=== PATIENT | male | born 1945 | race Caucasian/White ===

== ENCOUNTER 2017-06-14 08:17 | Outpatient (RCR) | payer MEDICARE, SELFPAY ==
[2017-06-14 08:52] LABS: International Normalized Ratio 2.8; Prothrombin Time (Protime)PT. 29.4 SECONDS (11.7-14.9)
[2017-06-14 09:11] LABS: AST(SGOT) 30 U/L (15-37); Alanine Aminotransfer ALT/SGPT 27 U/L (16-61); Albumin, Serum 3.8 g/dL (3.2-5.0); Alkaline Phosphatase 85 U/L (45-117); Bilirubin, Direct 0.11 mg/dL (0.00-0.30); Cholesterol 135 mg/dL (200); Globulin 4.2 g/dL (2.2-4.2); High Density Lipoprotein 55 mg/dL; Triglycerides 65 mg/dL; Very Low Density Lipoprotein 13 mg/dL (5-40)
== END 2017-06-14 09:00 | disposition home or self-care (01) ==
LOC: LAB 08:17
PROVIDERS: Family Provider Family Medicine; PCP Family Medicine; Visit Provider Internal Medicine Cardiovascular Disease
DX: E78.5 Hyperlipidemia, unspecified (principal); Z79.899 Other long term (current) drug therapy; I48.1 Persistent atrial fibrillation; Z95.5 Presence of coronary angioplasty implant and graft
CPT/HCPCS: 36415; 80061; 80076; 85610

== ENCOUNTER → 2017-07-07 09:13 | Outpatient (CLI) | payer MEDICARE, SELFPAY ==
[2017-07-07 09:56] LABS: International Normalized Ratio 2.5; Prothrombin Time (Protime)PT. 26.9 SECONDS (11.7-14.9)
[2017-07-07 10:25] LABS: ALB/GLOB Ratio 0.9 RATIO (0.9-2.4); AST(SGOT) 23 U/L (15-37); Alanine Aminotransfer ALT/SGPT 21 U/L (16-61); Albumin, Serum 3.6 g/dL (3.2-5.0); Alkaline Phosphatase 84 U/L (45-117); Anion Gap 7 (5-15); BUN 27 mg/dL (7-18); BUN/Creat Ratio 23.7 RATIO (10-20); Calcium,Total 8.8 mg/dL (8.5-10.1); Chloride 105 mmol/L (98-107); Creatinine, Serum 1.14 mg/dL (0.70-1.30); EST Glomerular Filtration Rate 67 mL/min (>60); Est Glom Filt Rate - Afr Amer 81 mL/min (>60); Globulin 4.1 g/dL (2.2-4.2); Glucose 95 mg/dL (74-106); Potassium 4.1 mmol/L (3.5-5.1); Protein, Total 7.7 g/dL (6.4-8.2); Sodium Level 141 mmol/L (136-145); T4 Free Direct 1.28 ng/dL (0.76-1.46); Thyroid Stim Hormone (TSH) 1.65 uIU/mL (0.358-3.74); Uric Acid 5.1 mg/dL (3.5-7.2)
== END ==
PROVIDERS: Family Provider Family Medicine; PCP Family Medicine; Visit Provider Family Medicine
DX: I48.1 Persistent atrial fibrillation (principal); Z79.899 Other long term (current) drug therapy; Z95.5 Presence of coronary angioplasty implant and graft; E03.9 Hypothyroidism, unspecified; I10 Essential (primary) hypertension; M10.9 Gout, unspecified
CPT/HCPCS: 36415; 80053; 84439; 84443; 84550; 85610

== ENCOUNTER 2018-05-16 10:12 | Outpatient (RCR) | payer MEDICARE, SELFPAY ==
[2018-05-16 09:10] VITALS: BMI 27.3
[2018-05-16 11:28] LABS: AST(SGOT) 29 U/L (15-37); Alanine Aminotransfer ALT/SGPT 27 U/L (16-61); Alkaline Phosphatase 96 U/L (45-117); Bilirubin, Direct 0.17 mg/dL (0.00-0.30); Cholesterol 141 mg/dL (200); Globulin 4.5 g/dL (2.2-4.2); High Density Lipoprotein 60 mg/dL; Protein, Total 8.5 g/dL (6.4-8.2); Prothrombin Time (Protime)PT. 31.1 SECONDS (11.7-14.9); Triglycerides 79 mg/dL; Very Low Density Lipoprotein 16 mg/dL (5-40)
== END 2018-05-25 15:01 | disposition home or self-care (01) ==
LOC: LAB 10:12
PROVIDERS: Family Provider Family Medicine; PCP Family Medicine; Referring Provider Physician Assistant Medical; Visit Provider Physician Assistant Medical
DX: I25.10 Atherosclerotic heart disease of native coronary artery without angina pectoris (principal); E78.5 Hyperlipidemia, unspecified; I10 Essential (primary) hypertension; I48.1 Persistent atrial fibrillation; Z95.0 Presence of cardiac pacemaker; Z79.01 Long term (current) use of anticoagulants
CPT/HCPCS: 36415; 80061; 80076; 85610

== ENCOUNTER → 2018-06-05 06:49 | Outpatient (CLI) | payer MEDICARE, SELFPAY ==
[2018-05-16 09:10] VITALS: BMI 27.3
--- NOTE | 2018-06-05 19:26 | STRESSREP ---
Stress Test Report Pharmacologic myocardial perfusion stress test. 72-year-old male with a history of chest pain. Medications: Clopidogrel losartan, metoprolol, simvastatin, Coumadin. Stress protocol: Resting EKG demonstrates atrial flutter with a rate of 60 bpm left bundle branch block is noted. 0.4 mg of regadenoson was infused per usual protocol followed by rapid intravenous saline flush injection continuous EKG monitoring was performed. Patient maintained atrial flutter throughout the recording. There were occasional pacing spikes noted. The maximum heart rate was 66 bpm which was 44% of maximum predicted heart rate the maximum workload was 1 metabolic equivalent. The resting blood pressure was 140/82 with a final blood pressure 150/74. No clinical angina was noted. Myocardial perfusion protocol. 12.0 mCi of technetium 99m sestamibi was injected at rest. 0.4 mg of regadenoson was infused per usual protocol. The peak infusion 33.5 mCi of technetium 99m sestamibi was injected stress images were obtained stress and rest images were reconstructed and compared in the short axis vertical and horizontal long axis. Gated images were also obtained to Perfusion SPECT analysis: Review of the stress images demonstrate normal perfusion noted in all areas of the myocardium. There are no areas of reduction of perfusion noted to suggest previous infarct or ischemia there is some GI attenuation artifact noted. A previous inferior wall infarction however not be completely excluded. There is mild apical thinning also present. Gated SPECT analysis: The gated ejection fraction is noted to be 29% with segmental wall motion abnormalities present. Conclusion: Myocardial perfusion stress test with no evidence of ischemia present. Cardiomyopathy present.
== END ==
PROVIDERS: Family Provider Family Medicine; PCP Family Medicine; Referring Provider Physician Assistant Medical; Visit Provider Physician Assistant Medical
DX: I25.10 Atherosclerotic heart disease of native coronary artery without angina pectoris (principal); E78.5 Hyperlipidemia, unspecified; I10 Essential (primary) hypertension; I48.1 Persistent atrial fibrillation; Z95.0 Presence of cardiac pacemaker
CPT/HCPCS: 78452; 93017; A9500; A4216; J2785

== ENCOUNTER 2018-08-02 08:09 | Outpatient (RCR) | payer MEDICARE, SELFPAY ==
[2018-08-02 09:44] LABS: AST(SGOT) 24 U/L (15-37); Alanine Aminotransfer ALT/SGPT 26 U/L (16-61); Alkaline Phosphatase 86 U/L (45-117); Bilirubin, Direct 0.13 mg/dL (0.00-0.30); Cholesterol 144 mg/dL (200); Globulin 4.4 g/dL (2.2-4.2); High Density Lipoprotein 47 mg/dL; Protein, Total 8.4 g/dL (6.4-8.2); Triglycerides 107 mg/dL; Very Low Density Lipoprotein 21 mg/dL (5-40)
[2018-08-02 09:57] LABS: Anion Gap 6 (5-15); BUN 33 mg/dL (7-18); BUN/Creat Ratio 26.2 RATIO (10-20); Calcium,Total 9.3 mg/dL (8.5-10.1); Chloride 105 mmol/L (98-107); Creatinine, Serum 1.26 mg/dL (0.70-1.30); EST Glomerular Filtration Rate 60 mL/min (>60); Est Glom Filt Rate - Afr Amer 72 mL/min (>60); Glucose 95 mg/dL (74-106); Potassium 4.2 mmol/L (3.5-5.1); Sodium Level 141 mmol/L (136-145); Thyroid Stim Hormone (TSH) 1.26 uIU/mL (0.358-3.74); Uric Acid 3.9 mg/dL (3.5-7.2)
== END 2018-08-02 09:09 | disposition home or self-care (01) ==
LOC: LAB 08:09
PROVIDERS: Internal Medicine Cardiovascular Disease; Family Provider Family Medicine; PCP Family Medicine; Referring Provider Physician Assistant Medical; Visit Provider Physician Assistant Medical
DX: I25.10 Atherosclerotic heart disease of native coronary artery without angina pectoris (principal); E78.5 Hyperlipidemia, unspecified; I10 Essential (primary) hypertension; I48.1 Persistent atrial fibrillation; Z95.0 Presence of cardiac pacemaker; Z79.01 Long term (current) use of anticoagulants
CPT/HCPCS: 36415; 80048; 80061; 80076; 84443; 84550

== ENCOUNTER → 2018-08-16 | Outpatient (CLI) | payer MEDICARE, SELFPAY ==
--- NOTE | 2018-08-16 09:36 | ECHOD_ITS ---
Reason For Study: Dyspnea/SOB Procedure This was a 2D Doppler, Color Flow transthoracic echocardiogram. Did not use Definity due to increased PAP. Exam performed in department. Left Ventricle Normal LV size. The estimated ejection fraction is 53 %. Mild segmental systolic dysfunction (see wall motion). Unable to assess diastolic dysfunction due to arrhythmia. Basal inferoseptal: Akinetic. Mid-Inferior: Hypokinetic. Infero-Basal: Akinetic. Right Ventricle Normal RV size. ICD or pacer leads identified within the right ventricle. Normal systolic function. Atria The left atrium is mildly enlarged. The right atrium is mildly enlarged. Mitral Valve Normal mitral valve. Mild-Moderate (1-2+) eccentric mitral valve insufficiency. Tricuspid Valve Normal tricuspid valve. Mild to moderate (1-2+) tricuspid valve insufficiency. Pulmonary artery systolic pressure is 49 mmHg. Mild pulmonary hypertension. Aortic Valve Trisinus/trileaflet aortic valve. Mild focal aortic valve calcification. Mild (1+) eccentric aortic valve insufficiency. Pulmonic Valve Normal pulmonic valve. Great Vessels Normal aortic root. The pulmonary artery is normal size. Normal inferior vena cava. Pericardium/Pleural No pericardial effusion. MMode/2D Measurements & Calculations LVIDd: 5.7 cm IVSd: 1.3 cm Ao root diam: 3.5 cm LVIDs: 4.2 cm LVPWd: 1.1 cm RVDd: 4.8 cm FS: 26.4 % LAV(MOD-bp): 76.2 ml LVAd ap4: 27.5 cm2 SV(MOD-sp4): 48.5 ml LAV(MOD-bp) Indexed: 38.3 ml/m2 EDV(MOD-sp4): 89.0 ml LAV(MOD-sp2): 76.2 ml EDV(sp4-el): 91.2 ml LAV(MOD-sp4): 75.0 ml LVAs ap4: 17.5 cm2 ESV(MOD-sp4): 40.5 ml ESV(sp4-el): 40.4 ml EF(MOD-sp4): 54.5 % EF(sp4-el): 55.7 % SV(sp4-el): 50.9 ml LA A4 area: 22.9 cm2 LA dimension(2D): 5.7 cm RA A4 area: 21.9 cm2 Doppler Measurements & Calculations MV E max noah: 89.3 cm/sec Ao V2 max: 137.2 cm/sec LV V1 max: 82.6 cm/sec Ao max P.5 mmHg LV V1 max P.7 mmHg Ao V2 mean: 93.4 cm/sec Ao mean P.9 mmHg Ao V2 VTI: 31.6 cm PA V2 max: 79.0 cm/sec PI end-d noah: 147.7 cm/sec TR max noah: 333.4 cm/sec TR max P.5 mmHg Interpretation Summary Normal LV size. The estimated ejection fraction is 53 %. Mild-Moderate (1-2+) eccentric mitral valve insufficiency. Mild pulmonary hypertension. The left atrium is mildly enlarged. The right atrium is mildly enlarged. Mild segmental systolic dysfunction (see wall motion). Unable to assess diastolic dysfunction due to arrhythmia. Ordering Physician: Konstantin Reyes Referring Physician: Rashad De Souza Performed By: Mona Ibarra, NOHELIA, RVT
== END | disposition home or self-care (01) ==
LOC: CVS 09:35
PROVIDERS: Family Provider Family Medicine; PCP Family Medicine; Referring Provider Internal Medicine Cardiovascular Disease; Visit Provider Internal Medicine Cardiovascular Disease
DX: I11.0 Hypertensive heart disease with heart failure (principal); I50.32 Chronic diastolic (congestive) heart failure; I25.10 Atherosclerotic heart disease of native coronary artery without angina pectoris; I48.1 Persistent atrial fibrillation; I49.5 Sick sinus syndrome; R06.00 Dyspnea, unspecified; Z95.0 Presence of cardiac pacemaker; E78.5 Hyperlipidemia, unspecified
CPT/HCPCS: 93306

== ENCOUNTER 2018-11-22 08:04 | Outpatient (RCR) | payer MEDICARE, SELFPAY ==
[2018-11-22 09:09] LABS: International Normalized Ratio 2.3; Prothrombin Time (Protime)PT. 25.3 SECONDS (11.7-14.9)
== END 2018-11-22 09:04 | disposition home or self-care (01) ==
LOC: LAB 08:04
PROVIDERS: Family Provider Family Medicine; PCP Family Medicine; Referring Provider Physician Assistant Medical; Visit Provider Physician Assistant Medical
DX: I25.10 Atherosclerotic heart disease of native coronary artery without angina pectoris (principal); E78.5 Hyperlipidemia, unspecified; I10 Essential (primary) hypertension; I48.1 Persistent atrial fibrillation; Z95.0 Presence of cardiac pacemaker; Z79.01 Long term (current) use of anticoagulants
CPT/HCPCS: 36415; 85610

== ENCOUNTER → 2018-12-18 11:12 | Outpatient (CLI) | payer MEDICARE, SELFPAY ==
[2018-12-07 11:42] VITALS: BMI 27.1
--- NOTE | 2018-12-18 11:23 | RAD_ITS ---
STUDY: X-RAY CHEST REASON FOR EXAM: Male, 73 years old. Preoperative heart catheterization chest pain TECHNIQUE: Two view of the chest were performed COMPARISON: 08 June 2016 FINDINGS: There is a small to moderate left pleural effusion. Right pleural cavity is clear. There is moderate cardiomegaly. Sternotomy wires are in place. Pacemaker is present in left upper chest with leads terminating in the right atrium and right ventricle. There is no pneumothorax or pulmonary edema or pneumonia. Osseous structures are intact. [ ] RAD/Chest PA and Lateral IMPRESSION: 1. Small to moderate left pleural effusion. 2. Mild cardiomegaly, prior open heart surgery. Electronically Signed: Collin Epps, at 19:01 EDT Tel , Service support ,
[2018-12-18 11:50] LABS: Absolute Lymphocyte Count 0.55 X10^3/uL (0.83-4.51); Absolute Neutrophil Count 5.2 X10^3/uL (2.0-7.7); Basophil# 0.04 X10^3/uL; Basophil% 0.6 % (0-1); Eosinophil# 0.09 X10^3/uL; Eosinophils% 1.4 % (0-5); Hematocrit 40.1 % (40-54); Hemoglobin 12.9 g/dL (13.0-16.5); Lymphocyte # 0.55 X10^3/ul (4.0); Lymphocyte % 8.4 % (19-41); Mean Corp Hgb Conc 32.2 g/dL (32-36); Mean Corpuscular Hgb 31.3 pg (27.0-32.0); Mean Corpuscular Volume 97.3 fL (80-94); Monocyte# 0.67 X10^3/uL; Monocyte% 10.2 % (0-10); NRBC Flagged by Analyzer 0 % (0-5); Neutrophil # 5.19 X10^3/uL (2.7-7.7); Neutrophil % 79.2 % (47-70); POSITIVE DIFFERENTIAL YES; Platelet Count 236 K/mm3 (150-450); RBC Distribution Width CV 13.4 % (11.6-14.6); RBC Distribution Width SD 48.8 fl (35.1-43.9); Red Blood Count 4.12 M/mm3 (4.6-6.2); White Blood Count 6.6 K/mm3 (4.4-11.0)
[2018-12-18 11:51] LABS: Differential Indicated SCAN CRITERIA MET
[2018-12-18 12:27] LABS: Anion Gap 6 (5-15); BUN 31 mg/dL (7-18); BUN/Creat Ratio 24.6 RATIO (10-20); Calcium,Total 8.9 mg/dL (8.5-10.1); Chloride 105 mmol/L (98-107); Creatinine, Serum 1.26 mg/dL (0.70-1.30); EST Glomerular Filtration Rate 60 mL/min (>60); Est Glom Filt Rate - Afr Amer 72 mL/min (>60); Glucose 93 mg/dL (74-106); Potassium 4.4 mmol/L (3.5-5.1); Sodium Level 140 mmol/L (136-145)
== END ==
PROVIDERS: Family Provider Family Medicine; PCP Family Medicine; Referring Provider Internal Medicine Cardiovascular Disease; Visit Provider Internal Medicine Cardiovascular Disease
DX: I25.709 Atherosclerosis of coronary artery bypass graft(s), unspecified, with unspecified angina pectoris (principal); E78.00 Pure hypercholesterolemia, unspecified
CPT/HCPCS: 36415; 71046; 80048; 85025

== ENCOUNTER 2018-12-25 07:56 | Day surgery (SDC) | payer MEDICARE, SELFPAY ==
[2018-12-07 11:42] VITALS: BMI 27.1
[2018-12-22 08:03] VITALS: BMI 27.1
[2018-12-25] VITALS (46 sets, daily range): BP systolic 128–184; BP diastolic 49–110; PULSE 60–66; RESP 12–23; TEMP 36.6–37.3; O2SAT 96–100; BMI 28.1; BMI 27.1
[2018-12-25 08:21] LABS: Prothrombin Time Fingerstick 20.5 SEC (11.9-14.4)
--- NOTE | 2018-12-25 09:50 | CL.D_ITS ---
Patient Name: WNE HATCH Study Date: 12/25/2018 Performing: Konstantin Reyes MD Ht: 68.89 inches 175 cm : 1945 Wt: 186.29 lbs 84.5 kg Age: 73 Gender: male BSA: 2 PROCEDURE(S) PERFORMED SB62-ABD/COR/LV CLINICAL PROFILE AND INDICATIONS Indications: Suspected CAD Heart Failure: None Stress/Imaging Date: 06/14/2018 CAD Presentations: Unstable angina. CONCLUSIONS [place] circumflex artery with severe disease post stent. The saphenous vein graft to the obtuse grayson inal branch is occluded, KHANNA to the LAD is patent, stebbins LAD and right coronary artery are occluded , left to right collaterals noted. RECOMMENDATIONS Referred for immediate PCI DESCRIPTION OF PROCEDURE The patient arrived to the procedure lab. The risks and benefits of the procedure as well as a full d escription of our services here and current unavailability of surgical backup were fully explained to the patient and/or their significant other prior to the catheterization. The Timeout was completed, verifying the correct patient and procedure. The patient's procedural site was prepped and draped in the usual fashion. Local anesthetic was given subcutaneously to right groin region with Lidocaine 2%. Using a modified Seldinger technique, arterial access was obtained via the right femoral artery, a 5 Fr sheath was inserted. Left Coronary Artery selective angiography was performed in multiple views u sing a 5 Fr. JL 5 catheter. Saphenous Vein graft to the DIAG 1 selective angiography was performed in multiple views using a 5 Fr. 3DRC (Rahul) catheter. Left internal mammary artery graft to the LAD selective angiography was performed in multiple views using a 5 Fr. IM catheter. Saphenous Vein graft to the OM 1 selective angiography was performed in multiple views using a 5 Fr. JR 4 catheter. Left Ventriculography was performed in KELLEY projection using a 5 Fr. Pigtail catheter. LV to AO pullback pressures were then recorded. CORONARY ANGIOGRAPHY DOMINANCE: Right Dominant LEFT HEART ASSESSMENT Left Ventricular Ejection Fraction: by LV Gram 45 % Anterior Hypokinesis - Mild Depressed Left Ventricular systolic function LEFT MAIN: Mild calcification, No significant disease noted LEFT ANTERIOR DESCENDING ARTERY: PROX LAD: is occluded CIRCUMFLEX ARTERY: PROX CIRC: Previously placed stent is patent, 75 % Stenosis RIGHT CORONARY ARTERY: PROX RCA: is occluded GRAFTS: KHANNA graft to the Distal LAD is patent Saphenous Vein graft to the 1st Diagonal previously placed stent has an instent restenosis of 40 % Sequential graft to the om occluded COLLATERAL FLOW: Collateral flow from Left to Right COMPLICATIONS PROCEDURE MEDICATIONS Versed 1 mg IV Versed 1 mg IV Aspirin (325mg) 1 Tabs PO @ 12/25/2018 08:34:17 SUMMARY OF HEMODYNAMIC DATA Time AIR REST ECG 08:24:34 AO 169/73 (109) SA 09:00:58 LV 149/9, 12 09:30:16 LV 147/6, 12 09:30:22 LV 142/0, 12 09:31:05 LVp 149/5, 23 09:31:08 AOp 151/59 (92) 09:31:13 Signed By Konstantin Reyes MD On 12/25/2018 09:49:53 Konstantin Reyes MD
[2018-12-25 10:31] LABS: ACT Activated Clotting Time 219 sec (74-137)
--- NOTE | 2018-12-25 10:31 | CL.I_ITS ---
Patient Name: WEN HATCH Study Date: 12/25/2018 Performing: Donnie Cao MD Ht: 68.89 inches 175 cm : 1945 Wt: 186.29 lbs 84.5 kg Age: 73 Gender: male BSA: 2 PROCEDURE(S) PERFORMED [id number] W OR WO PTCA, SINGLE CORONARY ARTERY CLINICAL PROFILE AND CO-MORBIDITIES Indications: Suspected CAD, Other, New Onset Angina <= 2 months, Stable Known CAD Heart Failure: None Stress/Imaging Date: 06/14/2018 Stress Test with SPECT MPI: Negative Angina Classification Anginal Classification w/in 2 Weeks: CCS II CAD Presentations: Unstable angina. Unstable angina. Comorbidities/Risk Factors: Prior PCI Prior PCI CONCLUSIONS Successful PTCA/BHUMI proximal LCX with a 2.5 x 12 Promus Synergy, post dilated with a 3.0 and 3.25 x 8 NC Balloon at 16 debra; 75%-->0%, no dissection. Pt had identical anginal symptoms as he has been hav ing with exertion with balloon inflation. RECOMMENDATIONS Follow up with Dr. Reyes Highly recommend quitting all tobacco products Follow up with primary protection manager Risk factor modification ASA Indefinitley Plavix for at least 12 months Routine post interventional care Refer for Outpatient Cardiac Rehab Manual sheath removal per protocol Restart coumadin on 12/26/2018 if groin is stable. 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 DESCRIPTION OF PROCEDURE The patient arrived to the procedure lab. The risks and benefits of the procedure as well as a full d escription of our services here and current unavailability of surgical backup were fully explained to the patient and/or their significant other prior to the catheterization. The Timeout was completed, verifying the correct patient and procedure. The patient's procedural site was prepped and draped in the usual fashion. Local anesthetic was given subcutaneously to right groin region with Lidocaine 2% Using a modified Seldinger technique,arterial access was obtained via the right femoral artery, a 5Fr sheath was inserted. Left Coronary Artery selective angiography was performed in multiple views usin g a 5 Fr. JL 5 catheter. Saphenous Vein graft to the DIAG 1 selective angiography was performed in mu ltiple views using a 5 Fr. 3DRC (Rahul) catheter. Left internal mammary artery graft to the LAD se lective angiography was performed in multiple views using a 5 Fr. IM catheter. Saphenous Vein graft to the OM 1 selective angiography was performed in multiple views using a [address] Left Ventriculography was performed in KELLEY projection using a 5 Fr. Pigtail catheter. LV to AO p ullback pressures were then recorded.The images were reviewed and options discussed. A decision was t hen made to proceed with an Intervention, IVUS or other adjunct procedure. Arterial sheath was exchanged for a 6 Fr Sheath. EBU 3.75 Guide catheter was inserted and engaged into the LCA. BMW Guide wire was advanced to the Circumflex. 2 x 12 Emerge Balloon catheter was inse rted. Balloon catheter was advanced across lesion in the circumflex, proximal. Angiogram performed pr e balloon dilatation. PTCA balloon inflated at 8 atms for 30 secs. PTCA balloon inflated at 12 atms f or 18 secs. Angiogram performed post balloon dilatation. 2.5 x 12 Drug Eluting stent was inserted. Dr ug Eluting stent was advanced across the lesion in the circumflex, proximal. Angiogram performed pre stent deployment. Angiogram performed post stent deployment. 3 x 8 NC Emerge Balloon catheter was ins erted. Balloon catheter was inserted post stent. Angiogram performed post balloon dilatation. 3.25 x 8 NC Emerge Balloon catheter was inserted. Balloon catheter was inserted post stent. Angiogram perfor med post balloon dilatation. Contrast was injected through the sheath and the Right Iliac and Femoral artery were assessed for possible closure device. The arterial sheath was sutured in marsha ce and capped INTERVENTION INFORMATION LESION SITE: Circumflex (Proximal) Lesion Complexity: Non-High/Non-C, lesion at bifurcation: No, thrombus present: No, lesion length: 12 mm, culprit lesion: Yes Pre Stenosis: 75 % Pre intervention CASE flow: 3 PROCEDURE: Drug Eluting Stent with pre and post dilatation Post Stenosis: 0 % Post intervention CASE flow: 3 Lesion Devices: Dixon .014 BMW Seffner Straight 190cm Medtronic 6 Fr EBU3.75 100cm Guide Catheter Itz Sci EMERGE MR 2.00x12 BALLOON Itz Sci Synergy MR BHUMI 2.50x12 Itz Sci NC EMERGE MR 3.00x08 BALLOON Itz Sci NC EMERGE MR 3.25x08 BALLOON COMPLICATIONS No Complications PROCEDURE MEDICATIONS Versed 1 mg IV Versed 1 mg IV Aspirin (325mg) 1 Tabs PO @ 12/25/2018 08:34:17 Heparin 6000 unit(s) IV 12/25/2018 09:50:13 Nitro 200 mcg IC 12/25/2018 09:52:19 Nitro 200 mcg IC 12/25/2018 09:52:19 IV Fluids: .9 NaCl increased to W/O ml/hr 12/25/2018 09:52:13 SUMMARY OF HEMODYNAMIC DATA Time AIR REST ECG 08:24:34 AO 169/73 (109) SA 09:00:58 LV 149/9, 12 09:30:16 LV 147/6, 12 09:30:22 LV 142/0, 12 09:31:05 LVp 149/5, 23 09:31:08 AOp 151/59 (92) 09:31:13 10:28:50 Signed By Donnie Cao MD On 12/25/2018 10:31:08 AM Donnie Cao MD
--- NOTE | 2018-12-25 10:39 | EKG12_ITS ---
Test Reason : AM Blood Pressure : / mmHG Vent. Rate : 062 BPM Atrial Rate : 288 BPM P-R Int : 000 ms QRS Dur : 160 ms QT Int : 500 ms P-R-T Axes : 000 022 136 degrees QTc Int : 507 ms Electronic ventricular pacemaker Confirmed by CARMELA MURRAY, HOLGER ([id number]), communications editor DONNA ESCAMILLA ([id number]) on 01/03/2019 2:13:35 PM Referred By: Konstantin Reyes Confirmed By:HOLGER CASEY MD
[2018-12-25] MEDS: 0.9% Normal Saline 1,000 ML 150 ML IV (11:06)
[2018-12-25] MEDS: Losartan Potassium 25 MG Tablet PO (13:04)
--- NOTE | 2018-12-25 13:14 | CRPHASE1_ITS ---
Patient Communication Former Patient:: Phase II - attended CR in 2016 PHII Cardiac Rehab Discussed with Patient:: Yes Guide to Cardiac Rehab Given to Patient:: Yes Cardiac Rehab Facility Choice List Given to Patient:: Yes Choice Program [facility] PHII:: Communication Given to CR, Refer to [facility] Risk Factors/Lifestyle Smoking Status: Former smoker - states he smoked a pipe occasionally, no cigarettes Hx Hypertension: Yes Hx Diabetes Mellitus Type 1: No Hx Diabetes Mellitus Type 2: No Hx Dyslipidemia: Yes Height: 5 ft 9 in Weight:: 184 lb BMI: 27.1 Family History: Family History (Last Reviewed 12/07/18 @ 11:52 by Konstantin Reyes MD) Father CVA (cerebral vascular accident) Mother CAD (coronary artery disease) Breast cancer Diabetes Myocardial infarction Sister Cancer Phase I Education Given On:: [place], Nutrition, Antiplatelet medication, CHF, Smoking cessation, Diabetes - Type I, Diabetes - Type II Issues Affecting Care:: None Knowledge of Condition:: Yes Medical/Surgical History CAD:: Yes Valve Disease/Replacement:: No Pulmonary:: No COPD:: No Asthma:: No Diabetes:: No Hypertension:: Yes Dyslipidemia:: Yes Arrhythmias:: Yes - a fib/flutter Arthritis:: Yes - minor GERD:: No Cancer:: Yes - 'skin' Renal:: No Thyroid:: Yes - levothyroxine CABG: Yes PTCA:: Yes Pacemaker:: Yes Discharge/Home/Social Eval Discharge Disposition: Home Marital Status: Cardiac Rehabilitation Info Cardiac Rehabilitation Program Information: Cardiac Rehabilitation is important for patients like you who are recovering from a heart problem. Cardiac rehabilitation programs are recognized as integral to the continued care of the patient with coronary heart disease. The cardiac rehabilitation program is designed to optimize a patient's physical, psychological, and social functioning. Health healthcare insurance sales agent work in cardiac rehabilitation programs and assist you with getting the treatments you need to get stronger and healthier - like exercise, healthy eating habits, and medications. Cardiac rehabilitation has been show to help people with heart problems live longer and have better life enjoyment than people who do not go to cardiac rehabilitation. Please contact the Cardiac Rehabilitation Program at [facility] at in two weeks if you have not heard from them.
--- NOTE | 2018-12-25 13:20 | CRPH1.INSTRU ---
General Education CAD and cardiac anatomy and function:: Not instructed Explanation of diagnoses and procedures:: Not instructed Sign/Symptoms of NH:: Not instructed Proper use of NTG-SL: Patient communicates acknowledgment, Needs reinforcement Emergency procedures and activation of EMS: Patient communicates acknowledgment, Family communicates acknowledgment, Needs reinforcement Compliance of all prescribed medications: Patient communicates acknowledgment Smoking Patient Nicotine/Smoking Risk Factors Are:: Non-smoker - smoked a rare pipe years ago Nicotine/Smoking Response Code:: Not instructed Dyslipidemia Patient Dyslipidemia Risk Factors Are:: Total Cholesterol - 08/02/18 144, Triglycerides - 107, HDL - 47, LDL - 76 Recommendations Include:: Lipid profile provided - lab date 08/02/2018 Dyslipidemia Response Code:: Not instructed Overweight/Obesity Patient Overweight/Obesity Risk Factors Are:: BMI Normal [24-29 & > 65 years old] Overweight/Obesity:: Not instructed Hypertension Recommendations Include:: Maintain BP <130/85, BP <130/80 if diabetic, DASH dietary guidelines, Decrease/maintain normal body weight, Moderation of ETOH Hypertension:: Not instructed Heart Disease Recommendations Include:: Educated family members of their risk, Educated family members of importance of prevention of heart disease Heart Disease Response Code:: Not instructed Diabetes Patient Diabetes Risk Factors Are:: No documented hx of diabetes Metabolic Syndrome Recommendations Include:: Reinforce compliance to risk factor modifications Metabolic Syndrome Response Code:: Not instructed Sedentary Sedentary Response Code:: Not instructed Stress Stress Response Code:: Not instructed
[2018-12-25] MEDS: Nitroglycerin (INPATIENT USE) 0.4 MG TAB.SUBL SUBLINGUAL (14:09)
[2018-12-25] MEDS: Nitroglycerin Oint 1 INCH PACKET TRANSDERM. (14:30)
[2018-12-25] MEDS: Nitroglycerin Infusion 250 ML 3 MG CONT INF (17:37)
[2018-12-25] MEDS: TITRATION PARAMETER CHANGE 1 EACH IV (17:41)
[2018-12-25] MEDS: Atorvastatin Calcium 20 MG Tablet PO (22:06)
[2018-12-26] VITALS (10 sets, daily range): BP systolic 139–158; BP diastolic 53–84; PULSE 60–67; RESP 17–23; TEMP 37.1–37.4; O2SAT 94–98
[2018-12-26] MEDS: Levothyroxine 100 MCG Tablet PO (05:40)
[2018-12-26 05:44] LABS: Hematocrit 35.3 % (40-54); Hemoglobin 11.4 g/dL (13.0-16.5); Mean Corp Hgb Conc 32.3 g/dL (32-36); Mean Corpuscular Volume 95.9 fL (80-94); Mean Platelet Vol. 9.9 fl (6.2-12.0); Platelet Count 194 K/mm3 (150-450); RBC Distribution Width CV 13.7 % (11.6-14.6); RBC Distribution Width SD 48.2 fl (35.1-43.9); Red Blood Count 3.68 M/mm3 (4.6-6.2); White Blood Count 7.2 K/mm3 (4.4-11.0)
[2018-12-26 06:10] LABS: ALB/GLOB Ratio 0.8 RATIO (0.9-2.4); AST(SGOT) 25 U/L (15-37); Alanine Aminotransfer ALT/SGPT 21 U/L (16-61); Albumin, Serum 3.1 g/dL (3.2-5.0); Alkaline Phosphatase 72 U/L (45-117); Anion Gap 6 (5-15); BUN 30 mg/dL (7-18); BUN/Creat Ratio 24.4 RATIO (10-20); Calcium,Total 8.5 mg/dL (8.5-10.1); Chloride 110 mmol/L (98-107); Creatinine, Serum 1.23 mg/dL (0.70-1.30); EST Glomerular Filtration Rate 61 mL/min (>60); Est Glom Filt Rate - Afr Amer 74 mL/min (>60); Estimated Creatinine Clearance 52.69 ml/min; Globulin 3.7 g/dL (2.2-4.2); Glucose 103 mg/dL (74-106); Potassium 4.1 mmol/L (3.5-5.1); Protein, Total 6.8 g/dL (6.4-8.2); Sodium Level 142 mmol/L (136-145)
--- NOTE | 2018-12-26 07:27 | PN.CARD_ITS ---
Subjectve: Evaluated. Appears to be doing well. No complaints overnight. Objective: Vital Signs Temp Pulse Resp BP Pulse Ox 98.8 F 67 19 H 158/60 H 96 12/26/18 04:00 12/26/18 06:00 12/26/18 06:00 12/26/18 06:00 12/26/18 06:00 Oxygen Delivery Method Room Air Weight: 193 lb 1.999 oz Body Mass Index (BMI) 28.1 Intake and Output for Last 24 Hours 12/24/18 12/25/18 12/26/18 23:59 23:59 23:59 Intake Total 1284.65 / 1404.65 420 / 420 Output Total 600 / 1050 700 / 700 Balance 684.65 / 354.65 -280 / -280 General: Awake, Alert, Oriented x 3 HEENT: PERRL, EOMI, Sclera Non Icteric Neck: Supple, Good ROM, No Lymph Node Enlargement Lungs: Clear to auscultation Cardiovascular: Regular Rhythm, Normal S1, Normal S2, No Murmurs, No Rubs, No Gallops Vascular: No Carotid Bruits, Normal Femoral Pulses, Normal Radial Pulses, Normal Dorsalis Pedal Pulse, Normal Posterior Tibial Pulses Abdomen: Bowel Sounds Present, Soft, Non Tender, No HSM, No Organomegaly Extremities: No Cyanosis, No Clubbing, No edema Musculoskeletal: No Erythema Skin: No Rashes Lymphatic: No Lymph Node Enlargement Neurological: No Focal Motor or Sensory Deficit Psych/Mental Status: Appropriate 12/25/18 07:54: INR 1.70 12/26/18 05:35: WBC 7.2, RBC 3.68 L, Hgb 11.4 L, Hct 35.3 L, MCV 95.9 H, MCH 31.0, MCHC 32.3, Plt Count 194, MPV 9.9 12/26/18 05:35: Sodium 142, Potassium 4.1, Chloride 110 H, Carbon Dioxide 26.0, Anion Gap 6, BUN 30 H, Creatinine 1.23, Est GFR (MDRD) Af Amer 74, Est GFR (MDRD) Non-Af 61, BUN/Creatinine Ratio 24.4 H, Glucose 103, Calcium 8.5, Total Bilirubin 0.40 Rhythm: EKG: ECHO: Stress Test: Cardiac Cath: PCI: CT Surgery: Holter monitor: EPS: PPM: CXR: Chest CT Scan: Medical Necessity - Tobacco Use Smoking Status: Former smoker - states he smoked a pipe occasionally, no cigarettes Assessment/Plan 1. Coronary artery disease * Patient is status post angioplasty and stenting of the grayling left circumflex artery successfully after cardiac catheterization yesterday demonstrating patency of the left internal mammary artery graft and a saphenous vein graft to the diagonal vessel. * The plan will be to discharge the patient continue aggressive medical therapy with her clopidogrel and will restart warfarin tonight. Start cardiac rehabilitation and will follow-up in my office.
--- NOTE | 2018-12-26 07:30 | DCINST_ITS ---
Discharge Diet: Low fat/ Low Cholesterol Lifting Restrictions: 10 pounds and also avoid any pushing or pulling for 3 days after your test. Additional Activity Instructions:: You must have someone drive you home. Do not drive until instructed by your doctor. You must have someone stay with you all night after your test. Rest in bed or on the couch until the next morning. Limit the number of times you go up and down stairs the day of your test. Apply pressure to the puncture site if you sneeze or cough. Allergies/Adverse Reactions: Allergies No Known Allergies Allergy (Verified 12/07/18 11:42) Medications to take at Discharge Allopurinol [Zyloprim] 300 mg PO DAILY 04/24/15 Ascorbic Acid [Vitamin C] 500 mg PO DAILY@0800 04/24/15 Levothyroxine Sodium [Levoxyl] 100 mcg PO DAILY 04/24/15 Nitroglycerin (INPATIENT USE) [Nitrostat] 0.4 mg SUBLINGUAL Q5M PRN 04/24/15 [place]-3 Fatty Acids/Fish Oil [Fish Oil 1,000 mg Capsule] 1 ea PO DAILY 04/24/15 clopidogrel 75 mg tablet 75 mg PO DAILY #90 tab 05/16/18 losartan 25 mg tablet 25 mg PO QDAY #90 tab 05/16/18 simvastatin 40 mg tablet 40 mg PO QHS #90 tab 05/16/18 warfarin 5 mg tablet See Rx Instructions PO DAILY #90 tab 05/16/18 metoprolol succinate ER 50 mg tablet,extended release 24 hr 50 mg PO DAILY #90 tab 12/07/18 Primary Care Physician: Sherwin De Souza MD [Primary Care Provider] - Test Results: Test results from this visit will be discussed in further detail at your follow- up appointment, if applicable. Proposed Discharge Date: 12/26/18 Cardiac Rehabilitation Info Cardiac Rehabilitation Program Information: Cardiac Rehabilitation is important for patients like you who are recovering from a heart problem. Cardiac rehabilitation programs are recognized as integral to the continued care of the patient with coronary heart disease. The cardiac rehabilitation program is designed to optimize a patient's physical, psychological, and social functioning. Health health care specialist work in cardiac rehabilitation programs and assist you with getting the treatments you need to get stronger and healthier - like exercise, healthy eating habits, and medicati ons. Cardiac rehabilitation has been show to help people with heart problems live longer and have better life enjoyment than people who do not go to cardiac rehabilitation. Please contact the Cardiac Rehabilitation Program at [facility] at in two weeks if you have not heard from them.
--- NOTE | 2018-12-26 10:00 | EKG12_ITS ---
Test Reason : POST PCI Blood Pressure : / mmHG Vent. Rate : 063 BPM Atrial Rate : 242 BPM P-R Int : 000 ms QRS Dur : 162 ms QT Int : 478 ms P-R-T Axes : 000 048 125 degrees QTc Int : 489 ms Electronic ventricular pacemaker Confirmed by CARMELA MURRAY, HOLGER ([id number]), editor managing director DONNA ESCAMILLA ([id number]) on 01/03/2019 2:14:28 PM Referred By: Konstantin Reyes Confirmed By:HOLGER CASEY MD
[2019-01-07 09:01] LABS: ACT Activated Clotting Time 180 sec (74-137)
[2019-01-07 09:01] LABS: ACT Activated Clotting Time 175 sec (74-137)
== END 2018-12-26 10:02 | disposition home or self-care (01) ==
LOC: CLSP 07:57 → ICU 10:31
PROVIDERS: Internal Medicine Cardiovascular Disease; Family Provider Family Medicine; PCP Family Medicine; Referring Provider Internal Medicine Cardiovascular Disease; Visit Provider Internal Medicine Cardiovascular Disease
DX: I25.709 Atherosclerosis of coronary artery bypass graft(s), unspecified, with unspecified angina pectoris (principal); E78.00 Pure hypercholesterolemia, unspecified; I49.5 Sick sinus syndrome; I11.0 Hypertensive heart disease with heart failure; I50.32 Chronic diastolic (congestive) heart failure; I27.21 Secondary pulmonary arterial hypertension; I34.0 Nonrheumatic mitral (valve) insufficiency; M19.90 Unspecified osteoarthritis, unspecified site; Z79.01 Long term (current) use of anticoagulants; Z79.02 Long term (current) use of antithrombotics/antiplatelets; Z79.899 Other long term (current) drug therapy; Z87.891 Personal history of nicotine dependence
CPT/HCPCS: 36416; 80053; 85027; 85347; 85610; 92928; 93005; 93458; 99152; 99153; J7030; J7040; Q9967; C1725; C1769; C1887; C9600

== ENCOUNTER 2019-01-19 11:14 | Outpatient (RCR) | payer MEDICARE, SELFPAY ==
[2018-12-25 13:19] VITALS: BMI 27.1
[2019-01-19 10:00] VITALS: BMI 27.1
[2019-01-19 12:00] LABS: Prothrombin Time (Protime)PT. 37.4 SECONDS (11.7-14.9)
[2019-01-19 12:15] LABS: International Normalized Ratio 3.8
== END 2019-01-19 18:00 | disposition home or self-care (01) ==
LOC: LAB 11:14
PROVIDERS: Family Provider Family Medicine; PCP Family Medicine; Referring Provider Physician Assistant Medical; Visit Provider Physician Assistant Medical
DX: I48.19 Other persistent atrial fibrillation (principal); I25.10 Atherosclerotic heart disease of native coronary artery without angina pectoris; E78.5 Hyperlipidemia, unspecified; I10 Essential (primary) hypertension; Z79.01 Long term (current) use of anticoagulants; Z95.0 Presence of cardiac pacemaker
CPT/HCPCS: 36415; 85610

== ENCOUNTER 2019-02-20 09:02 | Outpatient (RCR) | payer MEDICARE, SELFPAY ==
[2018-12-25 13:19] VITALS: BMI 27.1
[2019-02-20 09:43] LABS: International Normalized Ratio 2.7; Prothrombin Time (Protime)PT. 28.8 SECONDS (11.7-14.9)
[2019-02-20 09:58] LABS: AST(SGOT) 23 U/L (15-37); Alanine Aminotransfer ALT/SGPT 23 U/L (16-61); Alkaline Phosphatase 82 U/L (45-117); Bilirubin, Direct 0.14 mg/dL (0.00-0.30); Cholesterol 130 mg/dL (200); Globulin 4.3 g/dL (2.2-4.2); High Density Lipoprotein 45 mg/dL; Protein, Total 8.3 g/dL (6.4-8.2); Triglycerides 95 mg/dL; Very Low Density Lipoprotein 19 mg/dL (5-40)
[2019-02-20 10:07] LABS: AST(SGOT) 23 U/L (15-37); Alanine Aminotransfer ALT/SGPT 22 U/L (16-61); Alkaline Phosphatase 82 U/L (45-117); Anion Gap 5 (5-15); BUN 26 mg/dL (7-18); BUN/Creat Ratio 20.3 RATIO (10-20); Calcium,Total 9.3 mg/dL (8.5-10.1); Chloride 107 mmol/L (98-107); Creatinine, Serum 1.28 mg/dL (0.70-1.30); EST Glomerular Filtration Rate 58 mL/min (>60); Est Glom Filt Rate - Afr Amer 71 mL/min (>60); Globulin 4.1 g/dL (2.2-4.2); Glucose 100 mg/dL (74-106); Potassium 4.2 mmol/L (3.5-5.1); Protein, Total 8.1 g/dL (6.4-8.2); Sodium Level 141 mmol/L (136-145)
== END 2019-02-20 18:00 | disposition home or self-care (01) ==
LOC: LAB 09:02
PROVIDERS: Family Provider Family Medicine; PCP Family Medicine; Referring Provider Physician Assistant Medical; Visit Provider Physician Assistant Medical
DX: Z79.01 Long term (current) use of anticoagulants (principal); I25.10 Atherosclerotic heart disease of native coronary artery without angina pectoris; E78.5 Hyperlipidemia, unspecified; I10 Essential (primary) hypertension; I48.11 Longstanding persistent atrial fibrillation; Z95.0 Presence of cardiac pacemaker
CPT/HCPCS: 36415; 80053; 80061; 80076; 84443; 85610

== ENCOUNTER 2019-06-07 08:22 | Outpatient (RCR) | payer MEDICARE, SELFPAY ==
[2018-12-25 13:19] VITALS: BMI 27.1
[2019-03-02 11:34] VITALS: BMI 27.6
[2019-06-07 10:13] LABS: International Normalized Ratio 2.2
== END 2019-06-07 18:00 | disposition home or self-care (01) ==
LOC: LAB 08:22
PROVIDERS: Family Provider Family Medicine; PCP Family Medicine; Referring Provider Physician Assistant Medical; Visit Provider Physician Assistant Medical
DX: I48.11 Longstanding persistent atrial fibrillation (principal); Z79.01 Long term (current) use of anticoagulants
CPT/HCPCS: 36415; 85610

== ENCOUNTER → 2019-07-31 09:55 | Outpatient (CLI) | payer MEDICARE, SELFPAY ==
[2018-12-25 13:19] VITALS: BMI 27.1
[2019-06-12 11:29] VITALS: BMI 27.4
[2019-07-31 12:33] LABS: Hematocrit 40.8 % (40-54); Hemoglobin 12.8 g/dL (13.0-16.5); Mean Corp Hgb Conc 31.4 g/dL (32-36); Mean Corpuscular Hgb 29.9 pg (27.0-32.0); Mean Corpuscular Volume 95.3 fL (80-94); Mean Platelet Vol. 10.3 fl (6.2-12.0); Platelet Count 228 K/mm3 (150-450); RBC Distribution Width CV 14.6 % (11.6-14.6); RBC Distribution Width SD 50.5 fl (35.1-43.9); Red Blood Count 4.28 M/mm3 (4.6-6.2); White Blood Count 5.2 K/mm3 (4.4-11.0)
[2019-07-31 13:23] LABS: ALB/GLOB Ratio 1.1 RATIO (0.9-2.4); AST(SGOT) 22 U/L (15-37); Alanine Aminotransfer ALT/SGPT 20 U/L (16-61); Alkaline Phosphatase 78 U/L (45-117); Anion Gap 4 (5-15); BUN 32 mg/dL (7-18); BUN/Creat Ratio 26.7 RATIO (10-20); Chloride 108 mmol/L (98-107); EST Glomerular Filtration Rate 63 mL/min (>60); Est Glom Filt Rate - Afr Amer 76 mL/min (>60); Globulin 3.6 g/dL (2.2-4.2); Glucose 94 mg/dL (74-106); Potassium 4.6 mmol/L (3.5-5.1); Protein, Total 7.6 g/dL (6.4-8.2); Sodium Level 140 mmol/L (136-145); Thyroid Stim Hormone (TSH) 1.35 uIU/mL (0.358-3.74)
== END ==
PROVIDERS: PCP Family Medicine; Visit Provider Family Medicine
DX: E03.9 Hypothyroidism, unspecified (principal); I25.10 Atherosclerotic heart disease of native coronary artery without angina pectoris
CPT/HCPCS: 36415; 80053; 84443; 85027

== ENCOUNTER → 2019-11-16 13:44 | Outpatient (CLI) | payer MEDICARE, SELFPAY ==
[2018-12-25 13:19] VITALS: BMI 27.1
[2019-11-16 11:47] VITALS: BMI 27.4
[2019-11-16 15:05] LABS: AST(SGOT) 20 U/L (15-37); Alanine Aminotransfer ALT/SGPT 20 U/L (16-61); Albumin, Serum 3.6 g/dL (3.2-5.0); Alkaline Phosphatase 70 U/L (45-117); Bilirubin, Direct 0.14 mg/dL (0.00-0.30); Cholesterol 146 mg/dL (200); Globulin 4.3 g/dL (2.2-4.2); High Density Lipoprotein 47 mg/dL; Protein, Total 7.9 g/dL (6.4-8.2); Triglycerides 79 mg/dL; Very Low Density Lipoprotein 16 mg/dL (5-40)
== END ==
PROVIDERS: PCP Family Medicine; Referring Provider Internal Medicine Cardiovascular Disease; Visit Provider Internal Medicine Cardiovascular Disease
DX: I20.8 Other forms of angina pectoris (principal); E78.5 Hyperlipidemia, unspecified
CPT/HCPCS: 36415; 80061; 80076

== ENCOUNTER → 2020-02-05 11:13 | Outpatient (CLI) | payer MEDICARE, SELFPAY ==
[2018-12-25 13:19] VITALS: BMI 27.1
[2019-11-16 11:47] VITALS: BMI 27.4
[2020-02-05 13:16] LABS: ALB/GLOB Ratio 0.9 RATIO (0.9-2.4); AST(SGOT) 17 U/L (15-37); Alanine Aminotransfer ALT/SGPT 21 U/L (16-61); Albumin, Serum 3.6 g/dL (3.2-5.0); Alkaline Phosphatase 68 U/L (45-117); Anion Gap 5 (5-15); BUN 32 mg/dL (7-18); BUN/Creat Ratio 21.1 RATIO (10-20); Chloride 106 mmol/L (98-107); Creatinine, Serum 1.52 mg/dL (0.70-1.30); EST Glomerular Filtration Rate 48 mL/min (>60); Est Glom Filt Rate - Afr Amer 58 mL/min (>60); Glucose 86 mg/dL (74-106); PSA,Total - Annual Screen 0.93 ng/mL (0.00-4.00); Potassium 4.7 mmol/L (3.5-5.1); Protein, Total 7.6 g/dL (6.4-8.2); Sodium Level 137 mmol/L (136-145); Thyroid Stim Hormone (TSH) 2.22 uIU/mL (0.358-3.74)
== END ==
PROVIDERS: Internal Medicine Cardiovascular Disease; PCP Family Medicine; Referring Provider Family Medicine; Visit Provider Family Medicine
DX: I11.0 Hypertensive heart disease with heart failure (principal); I50.9 Heart failure, unspecified; Z12.5 Encounter for screening for malignant neoplasm of prostate; Z79.01 Long term (current) use of anticoagulants; I48.19 Other persistent atrial fibrillation
CPT/HCPCS: 36415; 80053; 84153; 84443; 85610; G0103

== ENCOUNTER → 2020-02-15 11:15 | Outpatient (CLI) | payer MEDICARE, SELFPAY ==
[2018-12-25 13:19] VITALS: BMI 27.1
[2019-11-16 11:47] VITALS: BMI 27.4
[2020-02-15 16:36] LABS: Prothrombin Time (Protime)PT. 47.2 SECONDS (11.7-14.9)
[2020-02-15 18:07] LABS: International Normalized Ratio 5.1
== END ==
PROVIDERS: Internal Medicine Cardiovascular Disease; PCP Family Medicine; Visit Provider Internal Medicine Cardiovascular Disease
DX: I48.19 Other persistent atrial fibrillation (principal); Z79.01 Long term (current) use of anticoagulants
CPT/HCPCS: 36415; 85610

== ENCOUNTER 2020-02-25 08:07 | Outpatient (RCR) | payer MEDICARE, SELFPAY ==
[2018-12-25 13:19] VITALS: BMI 27.1
[2019-06-12 11:29] VITALS: BMI 27.4
[2019-11-16 11:47] VITALS: BMI 27.4
== END 2020-02-25 18:00 | disposition home or self-care (01) ==
LOC: LAB 08:07
PROVIDERS: Family Provider Family Medicine; PCP Family Medicine; Referring Provider Internal Medicine Cardiovascular Disease; Visit Provider Internal Medicine Cardiovascular Disease
DX: I48.19 Other persistent atrial fibrillation (principal); Z79.01 Long term (current) use of anticoagulants
CPT/HCPCS: 36415; 85610

== ENCOUNTER 2020-03-17 08:03 | Outpatient (RCR) | payer MEDICARE, SELFPAY ==
[2018-12-25 13:19] VITALS: BMI 27.1
[2019-11-16 11:47] VITALS: BMI 27.4
--- NOTE | 2020-03-03 | LES_PTH ---
PATIENT: RASHAD HATCH LOC: [facility] U#:[id number] AGE/SX: 74/M ROOM: RE03/17/[address]: Dr. Vikash Navarro MD : 1945 BED: DIS: 03/17/2020 SPEC #: [id number] RECD: 03/03/20 10:52 STATUS: LINDA REBreanne #: [id number] BENJI: 03/03/20 00:[address]: Rashad De Souza DEPT: SURGICAL PATHOLOGY RECD BY: Papi Eubanks ENTERED: 03/03/20 12:27 SP TYPE: Lesion OTHR DR: Dr. Vikash Navarro MD Tissues: A - Skin of back, NOS B - Skin of back, NOS Procedures: Surgery Specimen Level IV HEADER OPERATION: Shave biopsy x2, right lateral upper back, right medial upper back PRE-OP DIAGNOSIS: Rule out SCC TISSUE SUBMITTED: A - Right lateral upper back, B - Right medial upper back MICROSCOPIC DIAGNOSIS A. Skin lesion of right lateral upper back, shave biopsy: Basal cell carcinoma, superficial, multifocal. B. Skin lesion of medial upper back, shave biopsy: Basal cell carcinoma, superficial, multifocal. AM:constantino 03/04/20 MICROSCOPIC DESCRIPTION Slides are reviewed. GROSS DESCRIPTION A - Received in fixative is one container labeled with the patient's name and designated right lateral upper back. The specimen consists of a light brennan shave biopsy of skin measuring 1 x 1 x <0.1 cm. The specimen is totally submitted in one cassette post fixation serial sectioning. B - Received in fixative is one container labeled with the patient's name and designated right medial upper back. The specimen consists of a light brennan shave biopsy of skin measuring 1.6 x 1.2 x <0.1 cm. The specimen is totally submitted in one cassette post fixation serial sectioning. / AM:constantino 03/03/20 TC:0 CPT: 39191 x2
[2020-03-03 11:12] LABS: International Normalized Ratio 2.8; Prothrombin Time (Protime)PT. 28.9 SECONDS (11.7-14.9)
[2020-03-17 09:04] LABS: Prothrombin Time (Protime)PT. 30.4 SECONDS (11.7-14.9)
== END 2020-03-17 18:00 | disposition home or self-care (01) ==
LOC: LAB 08:03
PROVIDERS: Family Provider Family Medicine; PCP Family Medicine; Referring Provider Internal Medicine Cardiovascular Disease; Visit Provider Internal Medicine Cardiovascular Disease
DX: I48.19 Other persistent atrial fibrillation (principal); Z79.01 Long term (current) use of anticoagulants
CPT/HCPCS: 36415; 85610; 88305

== ENCOUNTER → 2020-04-07 09:25 | Outpatient (CLI) | payer MEDICARE, SELFPAY ==
[2018-12-25 13:19] VITALS: BMI 27.1
[2019-11-16 11:47] VITALS: BMI 27.4
[2020-04-07 12:50] LABS: International Normalized Ratio 3.4; Prothrombin Time (Protime)PT. 33.9 SECONDS (11.7-14.9)
== END ==
PROVIDERS: PCP Family Medicine; Referring Provider Family Medicine; Visit Provider Internal Medicine Cardiovascular Disease
DX: I48.19 Other persistent atrial fibrillation (principal); Z79.01 Long term (current) use of anticoagulants
CPT/HCPCS: 36415; 85610

== ENCOUNTER → 2020-04-21 11:11 | Outpatient (CLI) | payer MEDICARE, SELFPAY ==
[2018-12-25 13:19] VITALS: BMI 27.1
[2019-11-16 11:47] VITALS: BMI 27.4
[2020-04-21 12:40] LABS: International Normalized Ratio 1.9; Prothrombin Time (Protime)PT. 21.2 SECONDS (11.7-14.9)
== END ==
PROVIDERS: PCP Family Medicine; Visit Provider Internal Medicine Cardiovascular Disease
DX: I48.19 Other persistent atrial fibrillation (principal); Z79.01 Long term (current) use of anticoagulants
CPT/HCPCS: 36415; 85610

== ENCOUNTER → 2020-05-22 09:44 | Outpatient (CLI) | payer MEDICARE, SELFPAY ==
[2018-12-25 13:19] VITALS: BMI 27.1
[2019-11-16 11:47] VITALS: BMI 27.4
[2020-05-22 12:33] LABS: International Normalized Ratio 2.1; Prothrombin Time (Protime)PT. 23.1 SECONDS (11.7-14.9)
[2020-05-22 12:42] LABS: AST(SGOT) 19 U/L (15-37); Alanine Aminotransfer ALT/SGPT 19 U/L (16-61); Albumin, Serum 3.5 g/dL (3.2-5.0); Alkaline Phosphatase 80 U/L (45-117); Bilirubin, Direct 0.17 mg/dL (0.00-0.30); Cholesterol 123 mg/dL (200); Globulin 4.3 g/dL (2.2-4.2); High Density Lipoprotein 59 mg/dL; Protein, Total 7.8 g/dL (6.4-8.2); Triglycerides 69 mg/dL; Very Low Density Lipoprotein 14 mg/dL (5-40)
== END ==
PROVIDERS: PCP Family Medicine; Referring Provider Family Medicine; Visit Provider Internal Medicine Cardiovascular Disease
DX: E78.00 Pure hypercholesterolemia, unspecified (principal); E78.5 Hyperlipidemia, unspecified; Z79.01 Long term (current) use of anticoagulants; I48.19 Other persistent atrial fibrillation
CPT/HCPCS: 36415; 80061; 80076; 85610

== ENCOUNTER → 2020-08-14 12:08 | Outpatient (CLI) | payer MEDICARE, SELFPAY ==
[2018-12-25 13:19] VITALS: BMI 27.1
[2020-05-29 10:44] VITALS: BMI 27.0
--- NOTE | 2020-08-14 12:11 | RAD_ITS ---
STUDY: X-RAY - ABDOMEN/PELVIS REASON FOR EXAM: Male, 74 years old. ABD PAIN TECHNIQUE: 4 AP views COMPARISON: None. FINDINGS: Lung bases are free of superimposed infiltrate though there is blunting of the left costophrenic angle suggesting pleural effusion. There is a moderate amount of colonic fecal material. There is no demonstrated free abdominal air. The visualized liver, spleen and kidneys are grossly normal in size and morphology. Normal soft tissue structures. There are diffuse degenerative changes of the visualized lumbar spine. RAD/Abd Inc Decub and/or Erect IMPRESSION: No acute findings, retained stool Electronically Signed: Wolfgang Farley MD at 12:35 EDT , Service support ,
[2020-08-14 15:04] LABS: Absolute Lymphocyte Count 0.56 X10^3/uL (0.83-4.51); Absolute Neutrophil Count 4.9 X10^3/uL (2.0-7.7); Basophil# 0.05 X10^3/uL; Basophil% 0.8 % (0-1); Eosinophil# 0.08 X10^3/uL; Eosinophils% 1.3 % (0-5); Hemoglobin 11.4 g/dL (13.0-16.5); Lymphocyte # 0.56 X10^3/ul (0.83-4.51); Lymphocyte % 9.2 % (19-41); Mean Corp Hgb Conc 31.7 g/dL (32-36); Mean Corpuscular Hgb 32.4 pg (27.0-32.0); Mean Corpuscular Volume 102.3 fL (80-94); Mean Platelet Vol. 10.8 fl (6.2-12.0); Monocyte# 0.53 X10^3/uL; Monocyte% 8.7 % (0-10); NRBC Flagged by Analyzer 0 % (0-5); Neutrophil # 4.88 X10^3/uL (2.7-7.7); Neutrophil % 79.7 % (47-70); POSITIVE DIFFERENTIAL YES; Platelet Count 232 K/mm3 (150-450); RBC Distribution Width CV 14.5 % (11.6-14.6); RBC Distribution Width SD 54.4 fl (35.1-43.9); Red Blood Count 3.52 M/mm3 (4.6-6.2); White Blood Count 6.1 K/mm3 (4.4-11.0)
[2020-08-14 15:25] LABS: Vitamin B12 698 pg/mL (211-911); Vitamin D,25 Hydroxy 35.5 ng/mL
[2020-08-14 15:30] LABS: Differential Indicated SCAN CRITERIA MET
[2020-08-14 15:36] LABS: Erythrocyte Sedimentation Rate 43 mm/hr (0-20)
[2020-08-14 15:38] LABS: ALB/GLOB Ratio 0.8 RATIO (0.9-2.4); AST(SGOT) 29 U/L (15-37); Alanine Aminotransfer ALT/SGPT 20 U/L (16-61); Albumin, Serum 3.6 g/dL (3.2-5.0); Alkaline Phosphatase 75 U/L (45-117); Anion Gap 9 (5-15); BUN 53 mg/dL (7-18); BUN/Creat Ratio 27.3 RATIO (10-20); Calcium,Total 9.6 mg/dL (8.5-10.1); Chloride 103 mmol/L (98-107); Creatinine, Serum 1.94 mg/dL (0.70-1.30); EST Glomerular Filtration Rate 36 mL/min (>60); Est Glom Filt Rate - Afr Amer 44 mL/min (>60); Globulin 4.5 g/dL (2.2-4.2); Glucose 106 mg/dL (74-106); Iron 82 ug/dL (65-175); Potassium 4.5 mmol/L (3.5-5.1); Protein, Total 8.1 g/dL (6.4-8.2); Sodium Level 137 mmol/L (136-145); Thyroid Stim Hormone (TSH) 1.49 uIU/mL (0.358-3.74)
[2020-08-14 16:25] LABS: Platelet Estimate ADEQUATE (ADEQ); Red Cell Morphology N CHROM NORMAL (NORM C&C)
[2020-08-14 16:26] LABS: Anisocytosis 1+; Macrocytosis RARE
== END ==
PROVIDERS: PCP Family Medicine; Referring Provider Family Medicine; Visit Provider Family Medicine
DX: R10.9 Unspecified abdominal pain (principal); R63.0 Anorexia; R53.83 Other fatigue
CPT/HCPCS: 36415; 74019; 80053; 82306; 82607; 83540; 84443; 85025; 85652

== ENCOUNTER → 2020-09-17 08:19 | Outpatient (CLI) | payer MEDICARE, SELFPAY ==
[2018-12-25 13:19] VITALS: BMI 27.1
[2020-05-29 10:44] VITALS: BMI 27.0
[2020-09-17 10:38] LABS: International Normalized Ratio 1.9; Prothrombin Time (Protime)PT. 20.8 SECONDS (11.7-14.9)
[2020-09-17 10:54] LABS: ALB/GLOB Ratio 0.8 RATIO (0.9-2.4); AST(SGOT) 18 U/L (15-37); Alanine Aminotransfer ALT/SGPT 18 U/L (16-61); Albumin, Serum 3.4 g/dL (3.2-5.0); Alkaline Phosphatase 92 U/L (45-117); Anion Gap 6 (5-15); BUN 38 mg/dL (7-18); BUN/Creat Ratio 22.8 RATIO (10-20); Calcium,Total 8.9 mg/dL (8.5-10.1); Chloride 105 mmol/L (98-107); Creatinine, Serum 1.67 mg/dL (0.70-1.30); EST Glomerular Filtration Rate 43 mL/min (>60); Est Glom Filt Rate - Afr Amer 52 mL/min (>60); Globulin 4.2 g/dL (2.2-4.2); Glucose 96 mg/dL (74-106); Potassium 4.5 mmol/L (3.5-5.1); Protein, Total 7.6 g/dL (6.4-8.2); Sodium Level 138 mmol/L (136-145); Thyroid Stim Hormone (TSH) 2.65 uIU/mL (0.358-3.74); Uric Acid 3.9 mg/dL (3.5-7.2)
== END ==
PROVIDERS: Internal Medicine Cardiovascular Disease; PCP Family Medicine; Referring Provider Family Medicine; Visit Provider Family Medicine
DX: I48.91 Unspecified atrial fibrillation (principal); E03.9 Hypothyroidism, unspecified; I10 Essential (primary) hypertension; M10.9 Gout, unspecified; N28.9 Disorder of kidney and ureter, unspecified
CPT/HCPCS: 36415; 80053; 84443; 84550; 85610

== ENCOUNTER 2020-11-27 09:53 | Outpatient (RCR) | payer MEDICARE, SELFPAY ==
[2018-12-25 13:19] VITALS: BMI 27.1
[2019-11-16 11:47] VITALS: BMI 27.4
[2020-11-27 10:56] LABS: Prothrombin Time (Protime)PT. 22.2 SECONDS (11.7-14.9)
[2020-11-27 11:36] LABS: AST(SGOT) 20 U/L (15-37); Alanine Aminotransfer ALT/SGPT 23 U/L (16-61); Albumin, Serum 3.8 g/dL (3.2-5.0); Alkaline Phosphatase 82 U/L (45-117); Bilirubin, Direct 0.18 mg/dL (0.00-0.30); Cholesterol 127 mg/dL (200); Globulin 4.6 g/dL (2.2-4.2); High Density Lipoprotein 64 mg/dL; Protein, Total 8.4 g/dL (6.4-8.2); Triglycerides 43 mg/dL; Very Low Density Lipoprotein 9 mg/dL (5-40)
== END 2020-11-27 18:00 | disposition home or self-care (01) ==
LOC: LAB 09:53
PROVIDERS: Family Provider Family Medicine; PCP Family Medicine; Referring Provider Physician Assistant Medical; Visit Provider Physician Assistant Medical
DX: I50.32 Chronic diastolic (congestive) heart failure (principal); I48.11 Longstanding persistent atrial fibrillation; Z79.01 Long term (current) use of anticoagulants
CPT/HCPCS: 36415; 80061; 80076; 85610

== ENCOUNTER 2021-03-31 10:50 | Outpatient (CLI) | payer MEDICARE, SELFPAY ==
[2018-12-25 13:19] VITALS: BMI 27.1
[2021-03-31 11:12] VITALS: BP 139/69; PULSE 62; RESP 16; TEMP 36.3; O2SAT 100; BMI 25.7
[2021-03-31] MEDS: 0.9% Saline Lock 10 ML Syringe IV (11:21)
[2021-03-31 12:04] VITALS: BP 126/61; PULSE 61; RESP 16; TEMP 36.4; O2SAT 100
[2021-03-31 12:59] VITALS: BP 128/68; PULSE 59; RESP 16; TEMP 36.6; O2SAT 100
== END 2021-03-31 23:59 | disposition home or self-care (01) ==
LOC: MS3OUT 10:51 → MS3 11:01
PROVIDERS: PCP Family Medicine; Referring Provider Nurse Practitioner Adult Health; Visit Provider Nurse Practitioner Adult Health
DX: Z23 Encounter for immunization (principal); U07.1 COVID-19
CPT/HCPCS: J7050; M0243; A4216; Q0240

== ENCOUNTER → 2021-08-10 | Outpatient (CLI) | payer MEDICARE, SELFPAY ==
[2018-12-25 13:19] VITALS: BMI 27.1
[2021-08-10 12:30] LABS: International Normalized Ratio 1.9; Prothrombin Time (Protime)PT. 21.5 SECONDS (11.7-14.9)
[2021-08-10 12:50] LABS: Anion Gap 6 (5-15); BUN 38 mg/dL (7-18); BUN/Creat Ratio 25.3 RATIO (10-20); Calcium,Total 9.4 mg/dL (8.5-10.1); Chloride 103 mmol/L (98-107); EST Glomerular Filtration Rate 48 mL/min (>60); Est Glom Filt Rate - Afr Amer 58 mL/min (>60); Glucose 98 mg/dL (74-106); Potassium 4.6 mmol/L (3.5-5.1); Sodium Level 137 mmol/L (136-145); T4 Free Direct 1.47 ng/dL (0.76-1.46); Thyroid Stim Hormone (TSH) 1.39 uIU/mL (0.358-3.74); Uric Acid 4.3 mg/dL (3.5-7.2)
[2021-08-10 13:32] LABS: AST(SGOT) 26 U/L (15-37); Alanine Aminotransfer ALT/SGPT 22 U/L (16-61); Albumin, Serum 3.7 g/dL (3.2-5.0); Alkaline Phosphatase 90 U/L (45-117); Bilirubin, Direct 0.22 mg/dL (0.00-0.30); Cholesterol 142 mg/dL (200); High Density Lipoprotein 56 mg/dL; Protein, Total 7.7 g/dL (6.4-8.2); Triglycerides 69 mg/dL; Very Low Density Lipoprotein 14 mg/dL (5-40)
== END | disposition home or self-care (01) ==
LOC: MFPLAB 10:21
PROVIDERS: Physician Assistant Medical; PCP Family Medicine; Visit Provider Family Medicine
DX: I50.32 Chronic diastolic (congestive) heart failure (principal); I48.11 Longstanding persistent atrial fibrillation
CPT/HCPCS: 36415; 80048; 80061; 80076; 84439; 84443; 84550; 85610

== ENCOUNTER → 2021-11-05 | Outpatient (CLI) | payer MEDICARE, SELFPAY ==
[2021-09-09 09:32] VITALS: BMI 27.1
--- NOTE | 2021-11-05 14:29 | VDLE_ITS ---
Reason For Study: swelling Procedure LEFT This is a venous duplex using B-mode, color CFV is compressible, spontaneous, competent, flow and spectral Doppler. and demonstrates pulsatile venous flow. Exam performed in department. FV is compressible, spontaneous, competent The exam was abbreviated due to the COVID 19 and demonstrates pulsatile venous flow. protocol. POP V is compressible, spontaneous, competent The exam was diagnostic. and demonstrates pulsatile venous flow. A preliminary report was called and/or faxed T/P Trunk is compressible. to Janel Macario. PTV is compressible. LT PerV is compressible. GSV is normal. VL/Venous Duplex US, Unilateral Interpretation Summary Deep veins of the left lower extremity are patent and compressible segmentally. There is no evidence of left lower extremity deep vein thrombosis. The left great saphenous vein delma ears patent and compressible segmentally. Ordering Physician: Janel Macario Performed By: Jey Malik RVT
[2021-11-05 15:05] LABS: Absolute Lymphocyte Count 0.59 X10^3/uL (0.83-4.51); Basophil# 0.07 X10^3/uL; Basophil% 0.9 % (0-1); Eosinophil# 0.15 X10^3/uL; Hemoglobin 11.7 g/dL (13.0-16.5); Lymphocyte # 0.59 X10^3/ul (0.83-4.51); Lymphocyte % 7.8 % (19-41); Mean Corp Hgb Conc 31.6 g/dL (32-36); Mean Corpuscular Hgb 32.1 pg (27.0-32.0); Mean Corpuscular Volume 101.4 fL (80-94); Mean Platelet Vol. 9.7 fl (6.2-12.0); Monocyte# 0.72 X10^3/uL; Monocyte% 9.5 % (0-10); NRBC Flagged by Analyzer 0 % (0-5); Neutrophil # 6.04 X10^3/uL (2.7-7.7); Neutrophil % 79.5 % (47-70); POSITIVE DIFFERENTIAL YES; Platelet Count 256 K/mm3 (150-450); RBC Distribution Width CV 14.1 % (11.6-14.6); RBC Distribution Width SD 52.3 fl (35.1-43.9); Red Blood Count 3.65 M/mm3 (4.6-6.2); White Blood Count 7.6 K/mm3 (4.4-11.0)
[2021-11-05 15:13] LABS: Differential Indicated SCAN CRITERIA MET; International Normalized Ratio 2.8; Prothrombin Time (Protime)PT. 29.2 SECONDS (11.7-14.9)
[2021-11-05 15:32] LABS: Anion Gap 3 (5-15); BUN 34 mg/dL (7-18); BUN/Creat Ratio 21.7 RATIO (10-20); Calcium,Total 9.2 mg/dL (8.5-10.1); Chloride 102 mmol/L (98-107); Creatinine, Serum 1.57 mg/dL (0.70-1.30); EST Glomerular Filtration Rate 46 mL/min (>60); Est Glom Filt Rate - Afr Amer 55 mL/min (>60); Glucose 112 mg/dL (74-106); Potassium 4.4 mmol/L (3.5-5.1); Sodium Level 137 mmol/L (136-145)
[2021-11-05 15:34] LABS: Differential Comment SCANNED
[2021-11-05 15:37] LABS: BNP,B-Type NATRIURETIC PEPTIDE 391.4 pg/mL (0-100)
== END | disposition home or self-care (01) ==
PROVIDERS: PCP Family Medicine; Referring Provider Physician Assistant Medical; Visit Provider Physician Assistant Medical
DX: R60.0 Localized edema (principal); I50.32 Chronic diastolic (congestive) heart failure; E78.00 Pure hypercholesterolemia, unspecified; Z79.01 Long term (current) use of anticoagulants
CPT/HCPCS: 36415; 80048; 83880; 85025; 85610; 93971

== ENCOUNTER → 2021-11-19 | Outpatient (CLI) | payer MEDICARE, SELFPAY ==
[2021-09-09 09:32] VITALS: BMI 27.1
[2021-11-19 10:41] LABS: Prothrombin Time (Protime)PT. 30.8 SECONDS (11.7-14.9)
[2021-11-19 11:03] LABS: Anion Gap 6 (5-15); BUN 56 mg/dL (7-18); BUN/Creat Ratio 30.6 RATIO (10-20); Calcium,Total 9.3 mg/dL (8.5-10.1); Chloride 102 mmol/L (98-107); Creatinine, Serum 1.83 mg/dL (0.70-1.30); EST Glomerular Filtration Rate 38 mL/min (>60); Est Glom Filt Rate - Afr Amer 46 mL/min (>60); Glucose 95 mg/dL (74-106); Potassium 4.2 mmol/L (3.5-5.1); Sodium Level 138 mmol/L (136-145)
== END | disposition home or self-care (01) ==
LOC: MFPLAB 09:24
PROVIDERS: Internal Medicine Cardiovascular Disease; PCP Family Medicine; Referring Provider Family Medicine; Visit Provider Physician Assistant Medical
DX: R60.0 Localized edema (principal); I48.11 Longstanding persistent atrial fibrillation; Z79.01 Long term (current) use of anticoagulants
CPT/HCPCS: 36415; 80048; 85610

== ENCOUNTER → 2021-12-04 | Outpatient (CLI) | payer MEDICARE, SELFPAY ==
[2021-09-09 09:32] VITALS: BMI 27.1
--- NOTE | 2021-12-04 10:44 | ECHOD_ITS ---
Reason For Study: CHF Procedure This was a 2D Doppler, Color Flow transthoracic echocardiogram. Exam performed in department. Left Ventricle Normal LV size. The estimated ejection fraction is 50 %. Mild segmental systolic dysfunction (see wall motion). Posterior-Basal: Hypokinetic. Mid-Lateral : Hypokinetic. Right Ventricle ICD or pacer leads identified within the right ventricle. Mildly dilated right ventricle. Normal systolic function. Atria The left atrium is moderately enlarged. The right atrium is moderately enlarged. ICD or pacer leads identified within the right atrium. Mitral Valve Mild diffuse mitral valve thickening. Mild-Moderate (1-2+) eccentric mitral valve insufficiency. Tricuspid Valve Normal tricuspid valve. Mild to moderate (1-2+) tricuspid valve insufficiency. Pulmonary artery systolic pressure is 50 mmHg. Aortic Valve Trisinus/trileaflet aortic valve. Mild focal aortic valve thickening. Pulmonic Valve Normal pulmonic valve. Mild (1+) pulmonic valve insufficiency. Great Vessels Normal aortic root. The pulmonary artery is normal size. Inferior vena cava collapse with sniff. Pericardium/Pleural No pericardial effusion. MMode/2D Measurements & Calculations LVIDd: 5.7 cm IVSd: 0.98 cm Ao root diam: 3.2 cm LVIDs: 4.4 cm LVPWd: 0.99 cm RVDd: 4.0 cm FS: 24.2 % LAV(MOD-bp): 96.4 ml LVAd ap4: 33.9 cm2 SV(MOD-sp4): 63.1 ml LAV(MOD-bp) Indexed: 49.5 ml/m2 LVLd ap4: 7.5 cm LAV(MOD-sp2): 95.2 ml EDV(MOD-sp4): 128.3 ml LAV(MOD-sp4): 93.5 ml EDV(sp4-el): 129.6 ml LVAs ap4: 23.0 cm2 LVLs ap4: 7.1 cm ESV(MOD-sp4): 65.2 ml ESV(sp4-el): 63.4 ml EF(MOD-sp4): 49.2 % EF(sp4-el): 51.1 % SV(sp4-el): 66.2 ml LA A4 area: 27.8 cm2 LA dimension(2D): 5.3 cm RA A4 area: 27.0 cm2 Time Measurements MV dec time: 0.14 sec Doppler Measurements & Calculations MV E max geovany: 77.0 cm/sec Lat Peak E' Geovany: 10.3 cm/sec Med Peak E' Geovany: 5.5 cm/sec MV A max geovany: 38.0 cm/sec E/E' lat: 7.5 E/E' med: 13.9 MV E/A: 2.0 Ao V2 max: 140.2 cm/sec LV V1 max: 70.8 cm/sec PA V2 max: 79.2 cm/sec Ao max P.9 mmHg LV V1 max P.0 mmHg PI end-d geovany: 137.9 cm/sec TR max geovany: 336.4 cm/sec TR max P.3 mmHg ECHO/Echo Complete Interpretation Summary Normal LV size. The estimated ejection fraction is 50 %. Mild segmental systolic dysfunction (see wall motion). Mild-Moderate (1-2+) eccentric mitral valve insufficiency. Pulmonary artery systolic pressure is 50 mmHg. Compared to previous study, the left ventricular systolic function is the same. . Ordering Physician: Janel Macario/Konstantin Reyes Referring Physician: JONATHAN PERDUE Performed By: Jennifer Correa RDCS
== END | disposition home or self-care (01) ==
LOC: CVS 10:42
PROVIDERS: PCP Family Medicine; Referring Provider Physician Assistant Medical; Visit Provider Physician Assistant Medical
DX: I27.21 Secondary pulmonary arterial hypertension (principal)
CPT/HCPCS: 93306

== ENCOUNTER 2022-04-26 16:07 | Emergency (ER) | payer MEDICARE, SELFPAY ==
[2021-09-09 09:32] VITALS: BMI 27.1
[2022-04-26 16:08] VITALS: BP 151/67; PULSE 88; RESP 18; TEMP 38.3; O2SAT 99; BMI 25.1
--- NOTE | 2022-04-26 16:32 | EDS_ITS ---
HPI <ERMA Chen - Last Filed: 04/26/22 21:13> History of Present Illness Chief Complaint: Cellulitis Narrative Narrative: Patient presenting with swelling and erythema to his face that he first noticed Tuesday or Tuesday. He states that he first noticed that his nose was swollen and red which he attributed to blowing his nose a lot lately. This morning when he woke up he noticed that that redness and swelling had spread to his cheeks and around his eyes. He states he has had chills and fevers since Tuesday. He states he remembers about 8 days ago having a lot of sneezing but denies any cold symptoms since. He denies having any allergies that he is aware of. <Dr. Ned Ngo MD - Last Filed: 04/26/22 20:48> Narrative Narrative: Patient presenting with swelling and erythema to his face that he first noticed Tuesday or Tuesday (2-3d). He states that he first noticed that his nose was swollen and red which he attributed to blowing his nose a lot lately. This morning when he woke up he noticed that that redness and swelling had spread to his cheeks and around his eyes. He states he has had chills and fevers since Tuesday. He states he remembers about 8 days ago having a lot of sneezing but denies any cold symptoms since. He denies having any allergies that he is aware of. 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[place] coronary artery w/angina pectoris Atherosclerotic heart disease of [place] coronary artery without angina pectoris Chronic diastolic heart failure COVID-19 (03/27/21) Essential (primary) hypertension Gout Hyperlipidemia Longstanding persistent atrial fibrillation Non-rheumatic tricuspid valve insufficiency Nonrheumatic mitral (valve) insufficiency Secondary pulmonary arterial hypertension Sick sinus syndrome Home Medications allopurinol 300 mg tablet 300 mg PO DAILY 04/24/15 [History Last Taken 12/25/18] ascorbic acid (vitamin C) 500 mg tablet 500 mg PO DAILY@0800 04/24/15 [History Last Taken 04/25/15] levothyroxine 100 mcg tablet 100 mcg PO DAILY 04/24/15 [History Last Taken 12/25/18] omega-3 fatty acids-fish oil 340 mg-1,000 mg capsule 1 ea PO DAILY 04/24/15 [History Last Taken 04/25/15] cholecalciferol (vitamin D3) 25 mcg (1,000 unit) capsule 25 mcg PO DAILY 02/18/20 [History Last Taken Unknown] losartan 25 mg tablet 25 mg PO QDAY #90 tabs 05/29/20 [Rx Last Taken Unknown] clopidogrel 75 mg tablet 75 mg PO DAILY #90 tabs 07/07/21 [Rx Last Taken Unknown] warfarin 5 mg tablet 5 mg PO .COMPLEX #90 tabs 07/07/21 [Rx Last Taken Unknown] isosorbide mononitrate 60 mg tablet,extended release 24 hr See Rx Instructions .Route .COMPLEX #90 tabs 08/31/21 [Rx Last Taken Unknown] ranolazine 500 mg tablet,extended release,12 hr 500 mg PO BID #180 tabs 09/09/21 [Rx Last Taken Unknown] simvastatin 40 mg tablet 40 mg PO QHS #90 tabs 09/09/21 [Rx Last Taken Unknown] amoxicillin 875 mg-potassium clavulanate 125 mg tablet 875 mg PO Q12H #20 TABLETS 04/26/22 [Rx Last Taken Unknown] Allergy/AdvReac Type Severity Reaction Status Date / Time No Known Allergies Allergy Verified 04/26/22 16:10 Family History Father CVA (cerebral vascular accident) Mother CAD (coronary artery disease) Breast cancer Diabetes Myocardial infarction Sister Cancer pituitary gland Surgical History H/O coronary artery bypass surgery (11/1998) History of bilateral cataract extraction History of bilateral inguinal hernia repair (~1990) History of coronary artery stent placement (12/25/18) History of permanent cardiac 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) Presence of aortocoronary bypass graft Presence of coronary angioplasty implant and graft Social History Smoking Status: Former smoker how long ago did patient quit smokin alcohol intake: current alcohol intake frequency: a few times a week Alcohol type: hard liquor substance use type: does not use caffeine: Yes Type: coffee Number of servings: 1 what type of physical activity do you participate in: weight training frequency: 1-2 times per week duration: 30-45 minutes/day seatbelt use: always do you feel safe at home: Yes ROS <ERMA Chen - Last Filed: 04/26/22 21:13> ROS ED Constitutional Constitutional ED: Reports chills and fever(s); Denies sweats Eyes Eyes: Denies blurry vision or diplopia ENT ENT ED: Denies rhinorrhea or sore throat Cardiovascular Cardiovascular: Denies chest pain or palpitations Respiratory/Chest Respiratory/Chest: Denies cough, dyspnea, tachypnea or wheezing Gastrointestinal Gastrointestinal: Denies abdominal pain, constipation, diarrhea, nausea or vomiting Genitourinary Genitourinary ED: Denies dysuria, hematuria or urinary urgency Musculoskeletal Musculoskeletal: Denies arthralgias, back pain, myalgias or neck pain Integumentary Denies abscess, Abrasions or rash Neurologic Neurologic: Denies confusion, dizziness or paresthesias Psychiatric Psychiatric: Denies anxiety, depression, suicidal ideation or suicidal thoughts Allergic/Immunologic Allergic/Immunologic ED: Denies lip swelling, mouth swelling, tongue swelling or urticaria EXAM <ERMA Chen - Last Filed: 04/26/22 21:13> Physical Exam Const Vital Signs: 04/26/22 16:08 04/26/22 19:00 Temperature 100.9 F H 100.1 F H Temperature Source Temporal Oral Pulse Rate 88 Respiratory Rate 18 Blood Pressure 151/67 H Blood Pressure Mean 95 Pulse Ox 99 Oxygen Delivery Method Room Air Positive well nourished, well developed and no apparent distress General Appearance ED: well developed HEENT Reports normocephalic and head/scalp atraumatic HEENT Narrative: Periorbital edema and erythema. Facial erythema and edema surrounding the cheeks bilaterally. No angioedema of the lips, tongue, or posterior pharynx. TMs clear on right side, cerumen impaction left side. Mouth ED: Yes moist mucous membranes normal Eyes PERRL and EOMs intact bilaterally Neck full ROM and supple Chest Wall inspection of chest normal Resp normal respiratory effort and clear to auscultation bilaterally Cardio regular rate and regular rhythm GI soft to palpation, non-tender, non-distended and no masses Back/Spine normal ROM and normal to inspection Extremity normal to inspection and full ROM Neuro oriented x3, CN's II-XII intact bilaterally, moves all extremities, no focal motor deficits and no sensory deficits noted Sensorium / Orientation: awake and alert Psych mental status grossly normal and thought process normal Skin no rashes or lesions noted and no wounds <Dr. Ned Ngo MD - Last Filed: 04/26/22 20:48> Physical Exam Const Vital Signs: 04/26/22 16:08 04/26/22 19:00 Temperature 100.9 F H 100.1 F H Temperature Source Temporal Oral Pulse Rate 88 Respiratory Rate 18 Blood Pressure 151/67 H Blood Pressure Mean 95 Pulse Ox 99 Oxygen Delivery Method Room Air MDM <ERMA Chen - Last Filed: 04/26/22 21:13> [facility] Narrative Medical decision making narrative: Patient presenting with erythema and edema around his eyes and on his cheeks bilaterally. He does have an elevated white blood cell count and we have also obtained a chest x-ray to help rule out cause of fever/ elevated WBC count. Chest x-ray did show left-sided pneumonia and left-sided pleural effusion patient has had chronically. Patient is well-appearing and in no acute distress. He is nontoxic-appearing. We have started him on Levaquin and Rocephin to cover for the pneumonia and the facial cellulitis. ED physician did speak to physician on-call for PCP and she is in agreement with this plan. He is to be discharged home in stable condition with antibiotics. He will have close outpatient follow-up. Patient is comfortable with plan. Seen and evaluated independently and in conjunction with physician laboratory chemical assistant. Agree with notes above unless documented otherwise. Clinically, this patient appears very well. His vital signs are normal except for low-grade temperature, we tried to treat that here with an antipyretic but the refused to allow us to give him anything, saying that she wanted to give him ibuprofen from her own purse, which nurses verified and she did. His work-up shows a significant leukocytosis of 24.8 with a leftward shift but no bandemia. In addition to this we did blood cultures, chemistries, lactic acid. The lactate is within normal limits, his creatinine is similar to prior readings, very slightly higher at 2.14 with similar BUN that he has had in the past. He does not appear dehydrated. Regardless he was given IV fluids in addition to IV antibiotics once the chest x-ray was reviewed, 1 view showing suspicion for retrocardiac infiltrate. I reviewed the radiologist's interpretation. Because it was difficult to tell, I sent him for CT of the chest, and since his facial erythema and swelling does not obviously go with the rest of this, we CT his facial sinuses in that area. It shows basically the swelling that we can see clinically and there is nothing else complicated. Certainly this is consistent with facial cellulitis, I see no other reason for him to have the erythema there, he said it was sore but he really is not tender like I would expect a significant infection of soft tissues to be. My interpretation of the CTs agrees with that of the radiologist. Regardless, we are treating him empirically with IV Levaquin and Rocephin to help cover these infections. I had nursing ambulate him. He did well without dyspnea and he had no hypoxemia. Patient appears well and he is not delirious. He does not be criteria for sepsis. I am concerned about his leukocytosis but I suspect it is from the pneumonia, the facial cellulitis should be covered by antibiotics that we put him on, but it does not appear aggressive enough to cause any necrosis or any other dangerous process that I think requires admission. He is comfortable going home. I discussed with the physician on-call for his group, Dr. Joseph. She is in agreement with this. After we gave him Levaquin I see that the patient is on warfarin which I was not aware of prior to that. 1 dose did not change his INR drastically, but I am prescribing him Augmentin instead of Levaquin to go home with as that should cover both his pneumonia and facial cellulitis adequately. Office will follow-up with him in the morning regarding a recheck and close outpatient follow-up in the office. Answered all questions at the bedside. Lab Data Lab results narrative: WBC 24.8, RBC 3.55, H&H 11.1 and 34.2, elevated neutrophils, BUN 46, creatinine 2.14, GFR 32 Labs: Laboratory Results - last 24 hr 04/26/22 04/26/22 04/26/22 16:40 16:40 18:26 WBC 24.8 H RBC 3.55 L Hgb 11.1 L Hct 34.2 L MCV 96.3 H MCH 31.3 MCHC 32.5 RDW Std Deviation 54.2 H RDW Coeff of Glendy 15.2 H Plt Count 214 MPV 10.0 Immature Gran % (Auto) 1.100 H Neut % (Auto) 94.4 H Lymph % (Auto) 0.9 L [place] % (Auto) 3.5 Eos % (Auto) 0.0 Baso % (Auto) 0.1 Absolute Neuts (auto) 23.4 H Absolute Lymphs (auto) 0.23 L Nucleated RBC % 0 Differential Comment Sodium 137 Potassium 3.8 Chloride 101 Carbon Dioxide 26.0 Anion Gap 10 BUN 46 H Creatinine 2.14 H Estim Creat Clear Calc 28.91 Est GFR (MDRD) Af Amer 39 L Est GFR (MDRD) Non-Af 32 L BUN/Creatinine Ratio 21.5 H Glucose 129 H Lactic Acid 1.5 Calcium 8.8 Radiography Diagnostic Testing: Clinical Impression(s) from Imaging Studies Chest X-Ray 04/26/22 17:00 IMPRESSION: 1. Postoperative change of prior CABG, transvenous pacer leads without change. 2. No pneumothorax. 3. No congestive failure. 4. Development of retrocardiac LEFT lower lobe consolidation and a persistent LEFT parapneumonic effusion. 5. RIGHT lung is clear. Electronically Signed: Rigo Pollock MD at 17:14 EST , Chest CT 04/26/22 17:20 IMPRESSION: 1. Focal area of LEFT lower lobe airspace consolidation/infiltrate. 2. LEFT parapneumonic effusion is present. 3. Minimal atelectasis and subtle interstitial infiltrate at the RIGHT lung base. Remaining lung zones clear. 4. Postop changes of prior CABG and transvenous pacer leads present. No pericardial effusion. Extensive coronary vascular calcifications are present. 5. Small hiatal hernia. 6. Calcified lymph nodes are present throughout the mediastinum and hilar regions. Electronically Signed: Rigo Pollock MD at 18:22 EST , Facial/Sinus 04/26/22 17:20 IMPRESSION: 1. Soft tissue stranding in the subcutaneous soft tissues of the face, greater on the LEFT than RIGHT. Findings consistent with cellulitis without organized fluid collections or abscess. 2. Small calcification projecting in the subcutaneous soft tissues in the LEFT midface/buccal fat pad. 3. Normal appearance of bony elements and soft tissues of both orbits. 4. Chronic appearing sinus disease involving predominantly RIGHT greater than LEFT sinuses with narrowing of the RIGHT OMC and RIGHT frontal recess with soft tissue/mucosal thickening in small amount of fluid in the ethmoid complexes RIGHT maxillary and RIGHT frontal sinus. Electronically Signed: Rigo Pollock MD at 18:46 EST , All imaging reviewed and interpreted by attending ED physician. In agreement with radiology. <Dr. Ned Ngo MD - Last Filed: 04/26/22 20:48> MDM MDM Narrative Medical decision making narrative: Seen and evaluated independently and in conjunction with physician laboratory chemical assistant. Agree with notes above unless documented otherwise. Clinically, this patient appears very well. His vital signs are normal except for low-grade temperature, we tried to treat that here with an antipyretic but the refused to allow us to give him anything, saying that she wanted to give him ibuprofen from her own purse, which nurses verified and she did. His work-up shows a significant leukocytosis of 24.8 with a leftward shift but no bandemia. In addition to this we did blood cultures, chemistries, lactic acid. The lactate is within normal limits, his creatinine is similar to prior readings, very slightly higher at 2.14 with similar BUN that he has had in the past. He does not appear dehydrated. Regardless he was given IV fluids in addition to IV antibiotics once the chest x-ray was reviewed, 1 view showing suspicion for retrocardiac infiltrate. I reviewed the radiologist's interpretation. Because it was difficult to tell, I sent him for CT of the chest, and since his facial erythema and swelling does not obviously go with the rest of this, we CT his facial sinuses in that area. It shows basically the swelling that we can see clinically and there is nothing else complicated. Certainly this is consistent with facial cellulitis, I see no other reason for him to have the erythema there, he said it was sore but he really is not tender like I would expect a significant infection of soft tissues to be. My interpretation of the CTs agrees with that of the radiologist. Regardless, we are treating him empirically with IV Levaquin and Rocephin to help cover these infections. I had nursing ambulate him. He did well without dyspnea and he had no hypoxemia. Patient appears well and he is not delirious. He does not be criteria for sepsis. I am concerned about his leukocytosis but I suspect it is from the pneumonia, the facial cellulitis should be covered by antibiotics that we put him on, but it does not appear aggressive enough to cause any necrosis or any other dangerous process that I think requires admission. He is comfortable going home. I discussed with the physician on-call for his group, Dr. Joseph. She is in agreement with this. After we gave him Levaquin I see that the patient is on warfarin which I was not aware of prior to that. 1 dose did not change his INR drastically, but I am prescribing him Augmentin instead of Levaquin to go home with as that should cover both his pneumonia and facial cellulitis adequately. Office will follow-up with him in the morning regarding a recheck and close outpatient follow-up in the office. Answered all questions at the bedside. Lab Data Attestation: I reviewed the patient's lab results. Labs: Laboratory Results - last 24 hr 04/26/22 04/26/22 04/26/22 16:40 16:40 18:26 WBC 24.8 H RBC 3.55 L Hgb 11.1 L Hct 34.2 L MCV 96.3 H MCH 31.3 MCHC 32.5 RDW Std Deviation 54.2 H RDW Coeff of [place]y 15.2 H Plt Count 214 MPV 10.0 Immature Gran % (Auto) 1.100 H Neut % (Auto) 94.4 H Lymph % (Auto) 0.9 L [place] % (Auto) 3.5 Eos % (Auto) 0.0 Baso % (Auto) 0.1 Absolute Neuts (auto) 23.4 H Absolute Lymphs (auto) 0.23 L Nucleated RBC % 0 Differential Comment Sodium 137 Potassium 3.8 Chloride 101 Carbon Dioxide 26.0 Anion Gap 10 BUN 46 H Creatinine 2.14 H Estim Creat Clear Calc 28.91 Est GFR (MDRD) Af Amer 39 L Est GFR (MDRD) Non-Af 32 L BUN/Creatinine Ratio 21.5 H Glucose 129 H Lactic Acid 1.5 Calcium 8.8 Radiography Diagnostic Testing: Clinical Impression(s) from Imaging Studies Chest X-Ray 04/26/22 17:00 IMPRESSION: 1. Postoperative change of prior CABG, transvenous pacer leads without change. 2. No pneumothorax. 3. No congestive failure. 4. Development of retrocardiac LEFT lower lobe consolidation and a persistent LEFT parapneumonic effusion. 5. RIGHT lung is clear. Electronically Signed: Rigo Pollock MD at 17:14 EST , Chest CT 04/26/22 17:20 IMPRESSION: 1. Focal area of LEFT lower lobe airspace consolidation/infiltrate. 2. LEFT parapneumonic effusion is present. 3. Minimal atelectasis and subtle interstitial infiltrate at the RIGHT lung base. Remaining lung zones clear. 4. Postop changes of prior CABG and transvenous pacer leads present. No pericardial effusion. Extensive coronary vascular calcifications are present. 5. Small hiatal hernia. 6. Calcified lymph nodes are present throughout the mediastinum and hilar regions. Electronically Signed: Rigo Pollock MD at 18:22 EST , Facial/Sinus 04/26/22 17:20 IMPRESSION: 1. Soft tissue stranding in the subcutaneous soft tissues of the face, greater on the LEFT than RIGHT. Findings consistent with cellulitis without organized fluid collections or abscess. 2. Small calcification projecting in the subcutaneous soft tissues in the LEFT midface/buccal fat pad. 3. Normal appearance of bony elements and soft tissues of both orbits. 4. Chronic appearing sinus disease involving predominantly RIGHT greater than LEFT sinuses with narrowing of the RIGHT OMC and RIGHT frontal recess with soft tissue/mucosal thickening in small amount of fluid in the ethmoid complexes RIGHT maxillary and RIGHT frontal sinus. Electronically Signed: Rigo Pollock MD at 18:46 EST , Discharge Plan Triage Chief Complaint: Cellulitis ED Midlevel Provider: Malou Nye ED Provider: Ned Ngo Dx/Rx/DC Orders Clinical Impression: Pneumonia, Cellulitis of face Instructions: ED Cellulitis, Facial, ED Pneumonia (Adult) Prescriptions: New amoxicillin-pot clavulanate [amoxicillin-pot clavulanate] 875-125 mg tablet 875 mg PO Q12H Qty: 20 0RF No Action losartan 25 mg tablet 25 mg PO QDAY Qty: 90 3RF simvastatin 40 mg tablet 40 mg PO QHS Qty: 90 3RF ranolazine 500 mg tablet extended release 12 hr 500 mg PO BID Qty: 180 3RF levothyroxine 100 MCG tablet 100 mcg PO DAILY ascorbic acid (vitamin C) 500 MG tablet 500 mg PO DAILY@0800 allopurinol 300 MG tablet 300 mg PO DAILY omega-3 fatty acids-fish oil 1 EACH capsule 1 ea PO DAILY cholecalciferol (vitamin D3) 25 mcg (1,000 unit) capsule 25 mcg PO DAILY clopidogrel 75 mg tablet 75 mg PO DAILY Qty: 90 3RF warfarin 5 mg tablet 5 mg PO .COMPLEX Qty: 90 4RF Protocol: Dose Management Condition: Tuesday Dose/Route: 2.5 mg Instruction: 0.5 x 5 mg tablets Condition: Tuesday Dose/Route: 2.5 mg Instruction: 0.5 x 5 mg tablets Condition: Tuesday Dose/Route: 2.5 mg Instruction: 0.5 x 5 mg tablets Condition: Tuesday Dose/Route: 5 mg Instruction: 1 x 5 mg tablet Condition: Dose/Route: 5 mg Instruction: 1 x 5 mg tablet Condition: Tuesday Dose/Route: 5 mg Instruction: 1 x 5 mg tablet Condition: Tuesday Dose/Route: 2.5 mg Instruction: 0.5 x 5 mg tablets Protocol Text: Adjustment Start Date: 11/19/21 INR Value: 3.0 INR Date: 11/19/21 Recheck Date: 12/03/21 Rx Instructions: 5 mg PO whole tablet daily on , and Tuesday; 0.5 tablet (2.5 mg) on Tue. Tue, Tue, and ; or as directed (instructions clarified) isosorbide mononitrate 60 mg tablet extended release 24 hr See Rx Instructions .ROUTE .COMPLEX Qty: 90 3RF Dose Instruction: Take 1 tablet by mouth once daily Rx Instructions: Take 1 tablet by mouth once daily Primary Care Provider: Sherwin De Souza Referrals: Sherwin De Souza MD [Primary Care Provider] - (Office will call you tomorrow to set up close outpatient follow-up this week) Disposition Disposition: Home, Self Care Discharge Date/Time: 04/26/22 20:56
[2022-04-26 16:58] LABS: Absolute Lymphocyte Count 0.23 X10^3/uL (0.83-4.51); Absolute Neutrophil Count 23.4 X10^3/uL (2.0-7.7); Basophil# 0.03 X10^3/uL; Basophil% 0.1 % (0-1); Hematocrit 34.2 % (40-54); Hemoglobin 11.1 g/dL (13.0-16.5); Lymphocyte # 0.23 X10^3/ul (0.83-4.51); Lymphocyte % 0.9 % (19-41); Mean Corp Hgb Conc 32.5 g/dL (32-36); Mean Corpuscular Hgb 31.3 pg (27.0-32.0); Mean Corpuscular Volume 96.3 fL (80-94); Monocyte# 0.88 X10^3/uL; Monocyte% 3.5 % (0-10); NRBC Flagged by Analyzer 0 % (0-5); Neutrophil # 23.41 X10^3/uL (2.7-7.7); Neutrophil % 94.4 % (47-70); POSITIVE DIFFERENTIAL YES; Platelet Count 214 K/mm3 (150-450); RBC Distribution Width CV 15.2 % (11.6-14.6); RBC Distribution Width SD 54.2 fl (35.1-43.9); Red Blood Count 3.55 M/mm3 (4.6-6.2); White Blood Count 24.8 K/mm3 (4.4-11.0)
--- NOTE | 2022-04-26 17:00 | RAD_ITS ---
INDICATION: fever EXAMINATION/TECHNIQUE: X-RAY - XR Chest 1 View COMPARISON: 12/18/2018 FINDINGS: LIFE-SUPPORT AND LINES: 1. Mediastinal wires and vascular clips are present. 2. Transvenous pacer leads project in normal position. 3. No pneumothorax. HEART AND VESSELS: Cardiac silhouette is unchanged, mild vascular congestion without interstitial edema. LUNGS AND PLEURAL SPACES: There is bibasilar atelectasis however development of retrocardiac LEFT lower lobe consolidation and a persistent LEFT effusion. No pulmonary mass is noted. MEDIASTINUM AND HILAR REGIONS: No masses adenopathy noted. No areas of calcification. Visualized upper airway is normal in position. BONY ELEMENTS: No acute bony changes noted. RAD/Chest 1 View (Portable) IMPRESSION: 1. Postoperative change of prior CABG, transvenous pacer leads without change. 2. No pneumothorax. 3. No congestive failure. 4. Development of retrocardiac LEFT lower lobe consolidation and a persistent LEFT parapneumonic effusion. 5. RIGHT lung is clear. Electronically Signed: Rigo Pollock MD at 17:14 EST ,
--- NOTE | 2022-04-26 17:00 | ED.RN ---
GAVE PT TYLENOL. DR NELSON
[2022-04-26 17:01] LABS: Differential Indicated SCAN CRITERIA MET
--- NOTE | 2022-04-26 17:20 | CT_ITS ---
INDICATION: facial swelling and pain, fever, leukocytosis EXAMINATION: CT FACIAL BONES - CT Maxillofacial W/O Contrast Injection TECHNIQUE: Helically acquired images were obtained of the facial bones. A radiation dose optimization technique was used for this scan. IV Contrast dosage and agent: None. Radiation Dose (provided by facility) CTDIvol (25.01 ) mGy, DLP ( 511.14) mGy-cm COMPARISON: Pr FINDINGS: AREAS OF INTEREST: 1. There is soft tissue stranding and subcutaneous soft tissues greater on the LEFT than RIGHT. There is a focal punctate hyperdensity on the LEFT in the region of the buccal fat pad. As likely represents an area of calcification. 2. No organized fluid collection or abscess identified. REMAINING EXAMINATION: ORBITS: 1. Normal appearance the bony alejandra the orbits. Soft tissue planes including preseptal and post septal soft tissue planes have normal appearance. Normal appearance of the globes, ocular lenses and optic nerves. NASAL SKELETON: Normal, no fractures noted. Nasal septum is near midline. PARANASAL SINUSES: 1. Paranasal sinuses are clear with exception of minimal mucosal thickening in the maxillary antra greater on the RIGHT than LEFT. The ostiomeatal complexes are clear though narrowed greater on the RIGHT. There is RIGHT ethmoid sinus mucosal thickening. Small amount of fluid and mucosal thickening in the RIGHT frontal sinus, narrowing the RIGHT frontal recess is present. Sphenoid sinuses are clear. 2. There is mild rightward deviation nasal septum, prominent RIGHT were directed bony spur is present. Turbinates have normal configuration SKULL BASE AND ZYGOMATIC ARCHES: Normal, normal alignment, no fractures noted. VISUALIZED MANDIBLE: 1. Normal appearance of the mandibular condyles, TMJs, and the visualized mandible to the level of the symphysis. 2. The visualized dentition appears intact. OTHER: Normal appearance of the deep spaces of the head and visualized upper neck. Airway has normal appearance. CT/Sinus/Facial Bone IMPRESSION: 1. Soft tissue stranding in the subcutaneous soft tissues of the face, greater on the LEFT than RIGHT. Findings consistent with cellulitis without organized fluid collections or abscess. 2. Small calcification projecting in the subcutaneous soft tissues in the LEFT midface/buccal fat pad. 3. Normal appearance of bony elements and soft tissues of both orbits. 4. Chronic appearing sinus disease involving predominantly RIGHT greater than LEFT sinuses with narrowing of the RIGHT OMC and RIGHT frontal recess with soft tissue/mucosal thickening in small amount of fluid in the ethmoid complexes RIGHT maxillary and RIGHT frontal sinus. Electronically Signed: Rigo Pollock MD at 18:46 EST ,
--- NOTE | 2022-04-26 17:20 | CT_ITS ---
INDICATION: abnormal cxr EXAMINATION: CT CHEST WITHOUT CONTRAST - CT Chest W/O Contrast Injection TECHNIQUE: Helically acquired images were obtained of the chest. A radiation dose optimization technique was used for this scan. Radiation Dose (provided by facility) CTDIvol (19.52 ) mGy, DLP ( 605.84) mGy-cm IV Contrast dosage and agent: None. COMPARISON: Chest radiograph of 04/26/2022 FINDINGS: LUNGS, PLEURA AND LARGE AIRWAYS: There is an area of airspace consolidation involving the infrahilar LEFT lower lobe. Pleural thickening and pleural effusion noted. Mild atelectasis and patchy areas of infiltrate also suspected at the RIGHT lung base. No effusion on the RIGHT. No pneumothorax. THYROID: No thyroid lesions. HEART AND PERICARDIUM: Cardiac contour is large, coronary vascular calcifications are present. There are postoperative changes of prior CABG, and transvenous pacer leads are present. No pericardial effusion. VESSELS: Moderate to extensive aortic calcifications without aneurysmal dilatation. MEDIASTINUM AND ENMANUEL: Scattered calcified lymph nodes are present throughout the mediastinum. Minimal scattered areas of pleural thickening also noted. Esophagus is unremarkable. There is a small hiatal hernia. UPPER ABDOMEN: No acute pathology. BONES: No suspicious lytic or blastic abnormality. CT/Chest without Contrast IMPRESSION: 1. Focal area of LEFT lower lobe airspace consolidation/infiltrate. 2. LEFT parapneumonic effusion is present. 3. Minimal atelectasis and subtle interstitial infiltrate at the RIGHT lung base. Remaining lung zones clear. 4. Postop changes of prior CABG and transvenous pacer leads present. No pericardial effusion. Extensive coronary vascular calcifications are present. 5. Small hiatal hernia. 6. Calcified lymph nodes are present throughout the mediastinum and hilar regions. Electronically Signed: Rigo Pollock MD at 18:22 EST ,
[2022-04-26 17:23] LABS: Anion Gap 10 (5-15); BUN 46 mg/dL (7-18); BUN/Creat Ratio 21.5 RATIO (10-20); Calcium,Total 8.8 mg/dL (8.5-10.1); Chloride 101 mmol/L (98-107); Creatinine, Serum 2.14 mg/dL (0.70-1.30); EST Glomerular Filtration Rate 32 mL/min (>60); Est Glom Filt Rate - Afr Amer 39 mL/min (>60); Estimated Creatinine Clearance 28.91 ml/min; Glucose 129 mg/dL (74-106); Potassium 3.8 mmol/L (3.5-5.1); Sodium Level 137 mmol/L (136-145)
[2022-04-26 18:28] VITALS: O2SAT 94
[2022-04-26] MEDS: levoFLOXacin IV 750 MG/150 ML BAG 100 MG IV (18:48)
[2022-04-26 18:57] LABS: Lactic Acid 1.5 mmol/L (0.4-1.9)
[2022-04-26 19:00] VITALS: TEMP 37.8
[2022-04-26] MEDS: Ceftriaxone 1 GM/50 ML BAG IV (19:53)
== END 2022-04-26 20:56 | disposition home or self-care (01) ==
PROVIDERS: Physician Assistant; Emergency Provider Emergency Medicine; PCP Family Medicine; Visit Provider Emergency Medicine
DX: R50.9 Fever, unspecified (principal); I50.32 Chronic diastolic (congestive) heart failure; I11.0 Hypertensive heart disease with heart failure; I27.21 Secondary pulmonary arterial hypertension; I48.91 Unspecified atrial fibrillation; J18.9 Pneumonia, unspecified organism; Z79.2 Long term (current) use of antibiotics; L03.211 Cellulitis of face; Z87.891 Personal history of nicotine dependence; Z95.1 Presence of aortocoronary bypass graft; I25.10 Atherosclerotic heart disease of native coronary artery without angina pectoris; M10.9 Gout, unspecified; E78.5 Hyperlipidemia, unspecified; Z79.899 Other long term (current) drug therapy
CPT/HCPCS: 70486; 71045; 71250; 80048; 83605; 85025; 87040; 87428; 96365; 96366; 96367; 99283; J7050; A4216

== ENCOUNTER → 2022-04-29 | Outpatient (CLI) | payer MEDICARE, SELFPAY ==
[2021-09-09 09:32] VITALS: BMI 27.1
[2022-04-29 15:09] LABS: Absolute Lymphocyte Count 0.42 X10^3/uL (0.83-4.51); Absolute Neutrophil Count 7.7 X10^3/uL (2.0-7.7); Basophil# 0.03 X10^3/uL; Basophil% 0.3 % (0-1); Eosinophil# 0.05 X10^3/uL; Eosinophils% 0.6 % (0-5); Hematocrit 33.9 % (40-54); Hemoglobin 10.6 g/dL (13.0-16.5); Lymphocyte # 0.42 X10^3/ul (0.83-4.51); Lymphocyte % 4.7 % (19-41); Mean Corp Hgb Conc 31.3 g/dL (32-36); Mean Corpuscular Hgb 30.9 pg (27.0-32.0); Mean Corpuscular Volume 98.8 fL (80-94); Mean Platelet Vol. 10.8 fl (6.2-12.0); Monocyte# 0.68 X10^3/uL; Monocyte% 7.7 % (0-10); NRBC Flagged by Analyzer 0 % (0-5); Neutrophil # 7.66 X10^3/uL (2.7-7.7); Neutrophil % 86.2 % (47-70); POSITIVE DIFFERENTIAL YES; Platelet Count 221 K/mm3 (150-450); RBC Distribution Width CV 15.1 % (11.6-14.6); Red Blood Count 3.43 M/mm3 (4.6-6.2); White Blood Count 8.9 K/mm3 (4.4-11.0)
[2022-04-29 15:17] LABS: Differential Indicated SCAN CRITERIA MET
[2022-04-29 15:18] LABS: Anion Gap 7 (5-15); BUN 45 mg/dL (7-18); BUN/Creat Ratio 28.8 RATIO (10-20); Calcium,Total 9.2 mg/dL (8.5-10.1); Chloride 107 mmol/L (98-107); Creatinine, Serum 1.56 mg/dL (0.70-1.30); EST Glomerular Filtration Rate 46 mL/min (>60); Est Glom Filt Rate - Afr Amer 56 mL/min (>60); Glucose 113 mg/dL (74-106); Potassium 4.8 mmol/L (3.5-5.1); Sodium Level 141 mmol/L (136-145)
[2022-04-29 16:39] LABS: Differential Comment SCANNED
== END | disposition home or self-care (01) ==
LOC: MTLAB 12:46
PROVIDERS: PCP Family Medicine; Referring Provider Family Medicine; Visit Provider Family Medicine
DX: I48.91 Unspecified atrial fibrillation (principal); N18.30 Chronic kidney disease, stage 3 unspecified; J18.9 Pneumonia, unspecified organism
CPT/HCPCS: 36415; 80048; 85025

== ENCOUNTER → 2022-05-04 | Outpatient (CLI) | payer MEDICARE, SELFPAY ==
[2021-09-09 09:32] VITALS: BMI 27.1
[2022-05-04 11:23] LABS: Absolute Lymphocyte Count 0.44 X10^3/uL (0.83-4.51); Absolute Neutrophil Count 7.3 X10^3/uL (2.0-7.7); Basophil# 0.07 X10^3/uL; Basophil% 0.8 % (0-1); Eosinophil# 0.11 X10^3/uL; Eosinophils% 1.3 % (0-5); Hematocrit 35.2 % (40-54); Hemoglobin 11.3 g/dL (13.0-16.5); Lymphocyte # 0.44 X10^3/ul (0.83-4.51); Lymphocyte % 5.1 % (19-41); Mean Corp Hgb Conc 32.1 g/dL (32-36); Mean Corpuscular Volume 96.4 fL (80-94); Mean Platelet Vol. 9.9 fl (6.2-12.0); Monocyte# 0.63 X10^3/uL; Monocyte% 7.3 % (0-10); NRBC Flagged by Analyzer 0 % (0-5); Neutrophil # 7.34 X10^3/uL (2.7-7.7); Neutrophil % 84.6 % (47-70); POSITIVE DIFFERENTIAL YES; Platelet Count 380 K/mm3 (150-450); RBC Distribution Width CV 14.8 % (11.6-14.6); RBC Distribution Width SD 51.7 fl (35.1-43.9); Red Blood Count 3.65 M/mm3 (4.6-6.2); White Blood Count 8.7 K/mm3 (4.4-11.0)
[2022-05-04 11:27] LABS: Differential Indicated SCAN CRITERIA MET
[2022-05-04 11:31] LABS: International Normalized Ratio 2.1; Prothrombin Time (Protime)PT. 23.4 SECONDS (11.7-14.9)
[2022-05-04 11:40] LABS: Differential Comment SCANNED
[2022-05-04 12:31] LABS: AST(SGOT) 30 U/L (15-37); Alanine Aminotransfer ALT/SGPT 25 U/L (16-61); Albumin, Serum 3.1 g/dL (3.2-5.0); Alkaline Phosphatase 81 U/L (45-117); Bilirubin, Direct 0.14 mg/dL (0.00-0.30); Cholesterol 110 mg/dL (200); High Density Lipoprotein 33 mg/dL; Protein, Total 8.1 g/dL (6.4-8.2); Triglycerides 95 mg/dL; Very Low Density Lipoprotein 19 mg/dL (5-40)
== END | disposition home or self-care (01) ==
PROVIDERS: Internal Medicine Cardiovascular Disease; PCP Family Medicine; Referring Provider Family Medicine; Visit Provider Family Medicine
DX: Z79.01 Long term (current) use of anticoagulants (principal); E78.00 Pure hypercholesterolemia, unspecified; D64.9 Anemia, unspecified
CPT/HCPCS: 36415; 80061; 80076; 85025; 85610

== ENCOUNTER 2022-05-17 07:59 | Outpatient (RCR) | payer MEDICARE, SELFPAY ==
[2021-09-09 09:32] VITALS: BMI 27.1
[2022-05-17 09:09] LABS: International Normalized Ratio 2.3; Prothrombin Time (Protime)PT. 25.2 SECONDS (11.7-14.9)
== END 2022-05-17 18:00 | disposition home or self-care (01) ==
LOC: LAB 07:59
PROVIDERS: PCP Family Medicine; Referring Provider Internal Medicine Cardiovascular Disease; Visit Provider Internal Medicine Cardiovascular Disease
DX: Z79.01 Long term (current) use of anticoagulants (principal)
CPT/HCPCS: 36415; 85610

== ENCOUNTER 2022-08-10 10:58 | Outpatient (RCR) | payer MEDICARE, SELFPAY ==
[2021-09-09 09:32] VITALS: BMI 27.1
--- NOTE | 2022-08-10 11:01 | RAD_ITS ---
INDICATION: pneumonia EXAMINATION/TECHNIQUE: X-RAY - XR Chest 2 Views COMPARISON: 04/26/2022. FINDINGS: The lungs are clear. Sternal cerclage wires and vascular clips are present from a prior sternotomy and coronary artery bypass graft procedure (CABG). Left-sided cardiac device. Tortuous and calcified thoracic aorta. The heart is borderline enlarged. Small left pleural effusion. No pneumothorax. Degenerative changes of the thoracic spine. RAD/Chest PA and Lateral IMPRESSION: Small left pleural effusion. Electronically Signed: Rashad Rodriguez MD at 21:17 EDT ,
[2022-08-10 12:23] LABS: Hematocrit 35.9 % (40-54); Hemoglobin 11.3 g/dL (13.0-16.5); Mean Corp Hgb Conc 31.5 g/dL (32-36); Mean Corpuscular Hgb 31.5 pg (27.0-32.0); Mean Platelet Vol. 10.6 fl (6.2-12.0); Platelet Count 180 K/mm3 (150-450); RBC Distribution Width CV 14.2 % (11.6-14.6); RBC Distribution Width SD 52.1 fl (35.1-43.9); Red Blood Count 3.59 M/mm3 (4.6-6.2); White Blood Count 6.4 K/mm3 (4.4-11.0)
[2022-08-10 12:30] LABS: International Normalized Ratio 2.2; Prothrombin Time (Protime)PT. 24.3 SECONDS (11.7-14.9)
[2022-08-10 13:05] LABS: Anion Gap 3 (5-15); BUN 39 mg/dL (7-18); BUN/Creat Ratio 25.2 RATIO (10-20); Calcium,Total 9.2 mg/dL (8.5-10.1); Chloride 106 mmol/L (98-107); Creatinine, Serum 1.55 mg/dL (0.70-1.30); EST Glomerular Filtration Rate 46 mL/min (>60); Est Glom Filt Rate - Afr Amer 56 mL/min (>60); Glucose 99 mg/dL (74-106); Potassium 4.5 mmol/L (3.5-5.1); Sodium Level 138 mmol/L (136-145); T4 Free Direct 1.38 ng/dL (0.76-1.46); Thyroid Stim Hormone (TSH) 2.34 uIU/mL (0.358-3.74)
[2022-08-10 13:56] LABS: Vitamin B12 409 pg/mL (211-911); Vitamin D,25 Hydroxy 38.4 ng/mL
== END 2022-08-10 11:58 | disposition home or self-care (01) ==
LOC: MTLAB 10:58
PROVIDERS: PCP Family Medicine; Referring Provider Internal Medicine Cardiovascular Disease; Visit Provider Internal Medicine Cardiovascular Disease
DX: I48.11 Longstanding persistent atrial fibrillation (principal); Z79.01 Long term (current) use of anticoagulants; J18.9 Pneumonia, unspecified organism; N18.30 Chronic kidney disease, stage 3 unspecified; R53.83 Other fatigue; E03.9 Hypothyroidism, unspecified
CPT/HCPCS: 36415; 71046; 80048; 82306; 82607; 84439; 84443; 85027; 85610

== ENCOUNTER → 2022-09-13 | Outpatient (CLI) | payer MEDICARE, SELFPAY ==
[2021-09-09 09:32] VITALS: BMI 27.1
--- NOTE | 2022-09-13 11:34 | RAD_ITS ---
EXAM: XR CHEST, 2 VIEWS CLINICAL INDICATION: Cold x 7 days with end expiratory wheezing TECHNIQUE: Frontal and lateral views of the chest. COMPARISON: 08/10/2022 FINDINGS: LUNGS AND PLEURAL SPACES: There are interstitial opacities in the right lung base which may represent scar. There is blunting of the left costophrenic angle unchanged and may represent small effusion or pleural scarring. No pneumothorax. HEART: Unremarkable. Cardiac silhouette not enlarged. MEDIASTINUM: Central airways and mediastinal contour are unremarkable. BONES/JOINTS: Unremarkable. SOFT TISSUES: Unremarkable. TUBES, LINES AND DEVICES: Left-sided pacemaker in stable position. RAD/Chest PA and Lateral IMPRESSION: No change in the appearance of the chest from the reference examination. Electronically Signed: Brayden Meza MD at 17:16 EDT ,
== END | disposition home or self-care (01) ==
LOC: MTRAD 11:33
PROVIDERS: PCP Family Medicine; Referring Provider Family Medicine; Visit Provider Family Medicine
DX: J02.9 Acute pharyngitis, unspecified (principal)
CPT/HCPCS: 71046

== ENCOUNTER 2022-10-08 14:40 | Outpatient (CLI) | payer MEDICARE, SELFPAY ==
[2021-09-09 09:32] VITALS: BMI 27.1
[2022-10-08 18:13] LABS: BNP,B-Type NATRIURETIC PEPTIDE 234.9 pg/mL (0-100)
[2022-10-12 20:08] LABS: B. pertussis IgA 1.5 index (0.0-0.9); B. pertussis IgG 3.81 index (0.00-0.94); B. pertussis IgM < 1.0 index (0.0-0.9)
== END 2022-10-08 23:59 | disposition home or self-care (01) ==
LOC: MTLAB 14:41
PROVIDERS: PCP Family Medicine; Referring Provider Family Medicine; Visit Provider Family Medicine
DX: I25.10 Atherosclerotic heart disease of native coronary artery without angina pectoris (principal); I50.9 Heart failure, unspecified; J40 Bronchitis, not specified as acute or chronic
CPT/HCPCS: 36415; 83880; 86615

== ENCOUNTER 2022-10-13 08:05 | Outpatient (RCR) | payer MEDICARE, SELFPAY ==
[2021-09-09 09:32] VITALS: BMI 27.1
[2022-10-13 09:03] LABS: Prothrombin Time (Protime)PT. 23.2 SECONDS (11.7-14.9)
== END 2022-10-25 18:00 | disposition home or self-care (01) ==
LOC: LAB 08:05
PROVIDERS: PCP Family Medicine; Referring Provider Internal Medicine Cardiovascular Disease; Visit Provider Internal Medicine Cardiovascular Disease
DX: I48.11 Longstanding persistent atrial fibrillation (principal); Z79.01 Long term (current) use of anticoagulants
CPT/HCPCS: 36415; 85610

== ENCOUNTER → 2022-11-04 | Outpatient (CLI) | payer MEDICARE, SELFPAY ==
[2021-09-09 09:32] VITALS: BMI 27.1
--- NOTE | 2022-11-07 16:44 | STRESSREP ---
Stress Test Report Date: 11/04/2022 Procedure: Pharmacologic stress nuclear imaging study Indications: Chest pain Consent: Per the patient Procedure: The patient underwent pharmacologic (Regadenoson) evaluation with a peak heart rate of 82 beats per minute (57%predicted maximal heart rate) and a peak blood pressure of 142/68 mmHg. The baseline ECG demonstrated paced rhythm. EKG during lexiscan infusion revealed no significant ischemic changes. EKG post infusion revealed no significant ischemic changes [There were no cardiac dysrhythmias pretest, during pharmacologic infusion, or recovery]. [There was no complaint of chest discomfort during pharmacologic infusion or recovery]. The examination was discontinued secondary to completion of protocol. Impression: 1. Lexiscan stress test test is negative for Lexiscan infusion induced EKG changes of ischemia. 2. Lexiscan stress test test is negative for Lexiscan infusion induced chest pain. 3. Results of the nuclear portion of the test is as below Myocardial perfusion imaging study: Technique: The patient was injected with 11.5 millicuries of technetium 99m Cardiolite and subsequently rest SPECT Cardiolite nuclear imaging was obtained in the horizontal long, vertical long, and short axis views. The patient underwent pharmacologic [Regadenoson 0.4mg] evaluation. Please see above for details. The patient was injected with 34.3 millicuries of technetium 99m Cardiolite and subsequently stress SPECT Cardiolite nuclear imaging was obtained in the horizontal long, vertical long, and short axis views. A gated Cardiolite study at peak stress was obtained. Interpretation: Rest and stress SPECT Cardiolite nuclear imaging status post realignment, normalization, and attenuation correction demonstrate no evidence of significant infarction or ischemia. Gated images reveal septal hypokinesis. The reported LVEF is 55%. Impression: 1. There is no evidence of significant ischemia or infarction. 2. Estimated ejection fraction is 55%. This note was generated with Mobifusionation software. It may contain incorrect words, spelling, and punctuation that were not noted in checking the note before signing.
== END | disposition home or self-care (01) ==
LOC: CVS 06:55
PROVIDERS: PCP Family Medicine; Referring Provider Nurse Practitioner Gerontology; Visit Provider Nurse Practitioner Gerontology
DX: R07.9 Chest pain, unspecified (principal); I25.709 Atherosclerosis of coronary artery bypass graft(s), unspecified, with unspecified angina pectoris; Z95.1 Presence of aortocoronary bypass graft; Z95.5 Presence of coronary angioplasty implant and graft
CPT/HCPCS: 78452; 93017; A9500; A4216; J2785

== ENCOUNTER 2023-02-16 07:59 | Outpatient (RCR) | payer MEDICARE, SELFPAY ==
[2021-09-09 09:32] VITALS: BMI 27.1
[2023-02-16 08:20] LABS: Hemoglobin 11.5 g/dL (13.0-16.5); Mean Corp Hgb Conc 31.9 g/dL (32-36); Mean Corpuscular Hgb 32.2 pg (27.0-32.0); Mean Corpuscular Volume 100.8 fL (80-94); Platelet Count 191 K/mm3 (150-450); RBC Distribution Width CV 13.7 % (11.6-14.6); RBC Distribution Width SD 50.4 fl (35.1-43.9); Red Blood Count 3.57 M/mm3 (4.6-6.2); White Blood Count 7.4 K/mm3 (4.4-11.0)
[2023-02-16 08:47] LABS: International Normalized Ratio 2.7; Prothrombin Time (Protime)PT. 29.2 SECONDS (11.7-14.9)
[2023-02-16 08:59] LABS: Vitamin D,25 Hydroxy 42.2 ng/mL
[2023-02-16 09:05] LABS: ALB/GLOB Ratio 0.9 RATIO (0.9-2.4); AST(SGOT) 29 U/L (15-37); Alanine Aminotransfer ALT/SGPT 25 U/L (16-61); Albumin, Serum 3.5 g/dL (3.2-5.0); Alkaline Phosphatase 86 U/L (45-117); Anion Gap 3 (5-15); BUN 45 mg/dL (7-18); BUN/Creat Ratio 23.6 RATIO (10-20); Calcium,Total 9.1 mg/dL (8.5-10.1); Chloride 107 mmol/L (98-107); Cholesterol 122 mg/dL (200); Creatinine, Serum 1.91 mg/dL (0.70-1.30); EST Glomerular Filtration Rate 36 mL/min (>60); Est Glom Filt Rate - Afr Amer 44 mL/min (>60); Globulin 3.9 g/dL (2.2-4.2); Glucose 98 mg/dL (74-106); High Density Lipoprotein 63 mg/dL; Potassium 4.3 mmol/L (3.5-5.1); Protein, Total 7.4 g/dL (6.4-8.2); Sodium Level 138 mmol/L (136-145); Thyroid Stim Hormone (TSH) 2.19 uIU/mL (0.358-3.74); Triglycerides 54 mg/dL; Uric Acid 4.2 mg/dL (3.5-7.2); Very Low Density Lipoprotein 11 mg/dL (5-40)
== END 2023-02-24 18:00 | disposition home or self-care (01) ==
LOC: LAB 07:59
PROVIDERS: PCP Family Medicine; Referring Provider Internal Medicine Cardiovascular Disease; Visit Provider Internal Medicine Cardiovascular Disease
DX: I48.11 Longstanding persistent atrial fibrillation (principal); Z79.01 Long term (current) use of anticoagulants; I25.10 Atherosclerotic heart disease of native coronary artery without angina pectoris; M10.9 Gout, unspecified; E03.9 Hypothyroidism, unspecified; E78.00 Pure hypercholesterolemia, unspecified; J40 Bronchitis, not specified as acute or chronic; E55.9 Vitamin D deficiency, unspecified
CPT/HCPCS: 36415; 80053; 80061; 82306; 84443; 84550; 85027; 85610

== ENCOUNTER → 2023-04-11 | Outpatient (CLI) | payer MEDICARE, SELFPAY ==
[2021-09-09 09:32] VITALS: BMI 27.1
--- NOTE | 2023-04-11 12:58 | ECHOCS_ITS ---
Reason For Study: ashd/cad Procedure This was a 2D Doppler, Color Flow transthoracic echocardiogram. The study was technically difficult. D/T poor apical accoustic windows. Contrast injection was performed. Exam performed in department. Left Ventricle Moderately dilated left ventricle. Moderate concentric left ventricular hypertrophy. The estimated ejection fraction is 55 %. Stage 3 diastolic dysfunction. No regional wall motion abnormalities noted. Right Ventricle Normal RV size. ICD or pacer leads identified within the right ventricle. Normal systolic function. Atria The left atrium is moderately enlarged. The right atrium is moderately enlarged. Mitral Valve Bileaflet diffuse mitral valve thickening. Tricuspid Valve Normal tricuspid valve. Mild tricuspid valve insufficiency. Pulmonary artery systolic pressure is 40 mmHg. Aortic Valve Trisinus/trileaflet aortic valve. Pulmonic Valve Normal pulmonic valve. Great Vessels Normal aortic root. The pulmonary artery is normal size. Normal inferior vena cava. Pericardium/Pleural No pericardial effusion. Medication 22 gauge I.V. with prn adaptor inserted into right arm. Diluted definity 2.0ml given slow IV push to enhance endocardial definition. MMode/2D Measurements & Calculations LVIDd: 6.3 cm IVSd: 1.6 cm LVOT diam: 2.3 cm LVIDs: 4.7 cm LVPWd: 1.4 cm FS: 25.4 % LVOT area: 4.0 cm2 Ao root diam: 3.3 cm LAV(MOD-bp): 99.1 ml LVAd ap4: 24.0 cm2 LAV(MOD-bp) Indexed: 51.0 ml/m2 LVLd ap4: 6.9 cm LAV(MOD-sp2): 92.6 ml EDV(MOD-sp4): 70.4 ml LAV(MOD-sp4): 92.6 ml EDV(sp4-el): 70.8 ml LVAs ap4: 15.7 cm2 LVLs ap4: 6.7 cm ESV(MOD-sp4): 30.6 ml ESV(sp4-el): 31.1 ml EF(MOD-sp4): 56.6 % EF(sp4-el): 56.0 % LVAd ap2: 25.3 cm2 SV(MOD-sp4): 39.9 ml SV(MOD-sp2): 39.8 ml LVLd ap2: 7.2 cm EDV(MOD-sp2): 72.6 ml EDV(sp2-el): 75.1 ml LVAs ap2: 16.5 cm2 LVLs ap2: 6.9 cm ESV(MOD-sp2): 32.8 ml ESV(sp2-el): 33.7 ml EF(MOD-sp2): 54.8 % SV(sp4-el): 39.6 ml LA dimension(2D): 5.4 cm LA A4 area: 27.2 cm2 RA A4 area: 27.2 cm2 TAPSE: 1.7 cm Time Measurements MV dec time: 0.24 sec Doppler Measurements & Calculations MV E max geovany: 88.4 cm/sec Lat Peak E' Geovany: 9.4 cm/sec Med Peak E' Geovany: 4.5 cm/sec MV A max geovany: 38.6 cm/sec E/E' lat: 9.4 E/E' med: 19.6 MV E/A: 2.3 MV V2 max: 98.8 cm/sec MV P1/2t max geovany: 96.9 cm/sec Ao V2 max: 174.7 cm/sec MV max P.9 mmHg MV P1/2t: 77.3 msec Ao max P.2 mmHg MV V2 mean: 45.5 cm/sec Ao V2 mean: 128.8 cm/sec MV mean P.0 mmHg MV dec slope: 367.2 cm/sec2 Ao mean P.2 mmHg MV V2 VTI: 26.1 cm MVA(P1/2t): 2.8 cm2 Ao V2 VTI: 41.9 cm AV (velocity ratio): 0.34 MVA(VTI): 2.2 cm2 ADONAY(I,D): 1.4 cm2 ADONAY(V,D): 1.5 cm2 LV V1 max: 67.0 cm/sec MR max geovany: 487.7 cm/sec SV(LVOT): 57.5 ml LV V1 max P.8 mmHg MR max P.1 mmHg LV V1 mean P.0 mmHg MR mean geovany: 393.7 cm/sec LV V1 mean: 47.8 cm/sec MR mean P.2 mmHg LV V1 VTI: 14.3 cm MR VTI: 185.9 cm PA V2 max: 80.1 cm/sec TR max geovany: 296.4 cm/sec PA V2 mean: 55.2 cm/sec TR max P.1 mmHg ECHO/Echo Complete W/ Contrast Interpretation Summary Moderately dilated left ventricle. Moderate concentric left ventricular hypertrophy. The estimated ejection fraction is 55 %. Stage 3 diastolic dysfunction. Pulmonary artery systolic pressure is 40 mmHg. Ordering Physician: Janel Macario Referring Physician: Rashad De Souza Performed By: Kiesha Hernandez RDCS, RVT
== END | disposition home or self-care (01) ==
LOC: CVS 12:57
PROVIDERS: PCP Family Medicine; Referring Provider Physician Assistant Medical; Visit Provider Physician Assistant Medical
DX: I27.21 Secondary pulmonary arterial hypertension (principal); Z95.1 Presence of aortocoronary bypass graft; Z95.0 Presence of cardiac pacemaker
CPT/HCPCS: 93306; Q9957; A4216; C8929

== ENCOUNTER → 2023-08-15 | Outpatient (CLI) | payer MEDICARE, SELFPAY ==
[2021-09-09 09:32] VITALS: BMI 27.1
[2023-08-15 12:42] LABS: Hematocrit 35.9 % (40-54); Hemoglobin 11.2 g/dL (13.0-16.5); Mean Corp Hgb Conc 31.2 g/dL (32-36); Mean Corpuscular Hgb 31.8 pg (27.0-32.0); Mean Platelet Vol. 11.1 fl (6.2-12.0); Platelet Count 182 K/mm3 (150-450); RBC Distribution Width CV 14.6 % (11.6-14.6); RBC Distribution Width SD 53.9 fl (35.1-43.9); Red Blood Count 3.52 M/mm3 (4.6-6.2); White Blood Count 7.8 K/mm3 (4.4-11.0)
[2023-08-15 12:46] LABS: International Normalized Ratio 3.2; Prothrombin Time (Protime)PT. 32.5 SECONDS (11.7-14.9)
[2023-08-15 13:00] LABS: BNP,B-Type NATRIURETIC PEPTIDE 382.5 pg/mL (0-100)
[2023-08-15 13:24] LABS: ALB/GLOB Ratio 0.9 RATIO (0.9-2.4); AST(SGOT) 21 U/L (15-37); Alanine Aminotransfer ALT/SGPT 16 U/L (16-61); Albumin, Serum 3.5 g/dL (3.2-5.0); Alkaline Phosphatase 82 U/L (45-117); Anion Gap 4 (5-15); BUN 35 mg/dL (7-18); BUN/Creat Ratio 21.6 RATIO (10-20); Calcium,Total 9.1 mg/dL (8.5-10.1); Chloride 106 mmol/L (98-107); Cholesterol 119 mg/dL (200); Creatinine, Serum 1.62 mg/dL (0.70-1.30); EST Glomerular Filtration Rate 44 mL/min (>60); Est Glom Filt Rate - Afr Amer 53 mL/min (>60); Glucose 88 mg/dL (74-106); High Density Lipoprotein 50 mg/dL; Potassium 4.5 mmol/L (3.5-5.1); Protein, Total 7.5 g/dL (6.4-8.2); Sodium Level 139 mmol/L (136-145); Thyroid Stim Hormone (TSH) 2.86 uIU/mL (0.358-3.74); Triglycerides 74 mg/dL; Very Low Density Lipoprotein 15 mg/dL (5-40)
== END | disposition home or self-care (01) ==
LOC: MFPLAB 09:21
PROVIDERS: PCP Family Medicine; Visit Provider Family Medicine
DX: E03.9 Hypothyroidism, unspecified (principal); I50.9 Heart failure, unspecified; N18.30 Chronic kidney disease, stage 3 unspecified
CPT/HCPCS: 36415; 80053; 80061; 83880; 84443; 85027; 85610

== ENCOUNTER → 2023-09-16 | Outpatient (CLI) | payer MEDICARE, SELFPAY ==
[2021-09-09 09:32] VITALS: BMI 27.1
[2023-09-16 12:44] LABS: International Normalized Ratio 2.2; Prothrombin Time (Protime)PT. 24.3 SECONDS (11.7-14.9)
== END | disposition home or self-care (01) ==
LOC: LAB 11:44
PROVIDERS: PCP Family Medicine; Referring Provider Physician Assistant Medical; Visit Provider Physician Assistant Medical
DX: Z79.01 Long term (current) use of anticoagulants (principal)
CPT/HCPCS: 36415; 85610

== ENCOUNTER 2024-05-05 08:31 | Outpatient (RCR) | payer MEDICARE, SELFPAY ==
[2021-09-09 09:32] VITALS: BMI 27.1
[2024-05-05 09:19] LABS: International Normalized Ratio 2.7; Prothrombin Time (Protime)PT. 29.2 SECONDS (11.7-14.9)
[2024-05-05 09:56] LABS: AST(SGOT) 21 U/L (15-37); Alanine Aminotransfer ALT/SGPT 18 U/L (16-61); Albumin, Serum 3.3 g/dL (3.2-5.0); Alkaline Phosphatase 85 U/L (45-117); Bilirubin, Direct 0.24 mg/dL (0.00-0.30); Cholesterol 106 mg/dL (200); Globulin 3.9 g/dL (2.2-4.2); High Density Lipoprotein 52 mg/dL; Protein, Total 7.2 g/dL (6.4-8.2); Triglycerides 69 mg/dL; Very Low Density Lipoprotein 14 mg/dL (5-40)
== END 2024-05-25 18:00 | disposition home or self-care (01) ==
LOC: LAB 08:31
PROVIDERS: PCP Family Medicine; Referring Provider Internal Medicine Cardiovascular Disease; Visit Provider Internal Medicine Cardiovascular Disease
DX: Z79.01 Long term (current) use of anticoagulants (principal); I48.92 Unspecified atrial flutter
CPT/HCPCS: 36415; 80061; 80076; 85610

== ENCOUNTER → 2024-07-31 | Outpatient (CLI) | payer MEDICARE, SELFPAY ==
[2021-09-09 09:32] VITALS: BMI 27.1
--- NOTE | 2024-07-31 09:01 | RAD_ITS ---
PROCEDURE: CHEST PA AND LATERAL 07/31/2024 REASON FOR EXAM: FOR PPM GENERATOR CHANGE TECHNIQUE: Frontal and lateral views of the chest. COMPARISON: Chest x-ray dated 09/13/2022. FINDINGS: Pacemaker seen overlying the left chest. There are median sternotomy wires present, which appears stable. The cardiac silhouette is enlarged. [id number] left-sided pleural effusion is present. Underlying left lower lobe atelectasis/pneumonia/mass can not be ruled out. This appears increased since prior examination. The right lung is relatively clear. There is no pneumothorax. There are no acute osseous abnormalities present. RAD/Chest PA and Lateral IMPRESSION: Left lower lobe airspace opacity, worsened since prior examination representing an effusion. This is overall worsened when compared to prior examination. Underlying consolidation/mass can not be ruled out at the left base. Reading Location: [id number]
[2024-07-31 09:39] LABS: Bacteria 0 SEEN /hpf (None Seen); Mucous, Urine 0 SEEN /hpf (<or=2+); Red Blood Cells-Urine 0 SEEN /hpf (0-5); Squamous Epithelial Cells - UA 0 SEEN /hpf (0-5); White Blood Cells 0 SEEN /hpf (0-5)
[2024-07-31 09:46] LABS: Hemoglobin 11.7 g/dL (13.0-16.5); Mean Corp Hgb Conc 32.5 g/dL (32-36); Mean Corpuscular Hgb 32.4 pg (27.0-32.0); Mean Corpuscular Volume 99.7 fL (80-94); Mean Platelet Vol. 10.4 fl (6.2-12.0); Platelet Count 193 K/mm3 (150-450); RBC Distribution Width CV 14.7 % (11.6-14.6); RBC Distribution Width SD 54.3 fl (35.1-43.9); Red Blood Count 3.61 M/mm3 (4.6-6.2); White Blood Count 7.2 K/mm3 (4.4-11.0)
[2024-07-31 09:50] LABS: Color, Urine Yellow (Yellow); Glucose, Dipstick Normal (Normal); Ketone-Dipstick Negative (Negative); Leukocyte Esterase-Dipstick Negative /ul (Negative); Nitrite-Dipstick Negative (Negative); Occult Blood-Urine Negative /ul (Negative); Protein-Dipstick 30 mg/dl (Negative); Specific Gravity, Urine 1.005 (1.002-1.030); Urine Bilirubin Dipstick Negative (Negative); Urine Clarity Clear (Clear); Urine Urobilinogen Normal (Normal); Urine pH 6.5 (5.0 - 8.0)
[2024-07-31 10:02] LABS: International Normalized Ratio 1.8; Prothrombin Time (Protime)PT. 21.6 SECONDS (11.7-14.9)
[2024-07-31 11:05] LABS: Anion Gap 11 (5-15); BUN 37 mg/dL (4-19); BUN/Creat Ratio 22.5 RATIO (10-20); Calcium,Total 9.4 mg/dL (7.6-11.0); Carbon Dioxide 25.4 mmol/L (21.0-32.0); Chloride 103 mmol/L (98-108); Creatinine, Serum 1.62 mg/dL (0.70-1.20); EST Glomerular Filtration Rate 43 (>60); Glucose 80 mg/dL (70-99); Potassium 4.7 mmol/L (3.3-5.1); Sodium Level 139 mmol/L (133-145)
== END | disposition home or self-care (01) ==
LOC: RAD 09:00
PROVIDERS: PCP Family Medicine; Referring Provider Internal Medicine Cardiovascular Disease; Visit Provider Internal Medicine Cardiovascular Disease
DX: Z86.79 Personal history of other diseases of the circulatory system (principal); I48.92 Unspecified atrial flutter; Z95.0 Presence of cardiac pacemaker
CPT/HCPCS: 36415; 71046; 80048; 81001; 85027; 85610

== ENCOUNTER 2024-08-17 06:56 | Day surgery (SDC) | payer MEDICARE, SELFPAY ==
[2021-09-09 09:32] VITALS: BMI 27.1
[2024-08-16 14:38] VITALS: BMI 25.9
[2024-08-17 07:08] LABS: INR Fingerstick 1.5; Prothrombin Time Fingerstick 17.1 SEC (11.7-14.9)
--- NOTE | 2024-08-17 08:47 | CL.IE_ITS ---
Patient: WEN HATCH Study Date: 08/17/2024 Performing: Konstantin Reyes MD : 1945 Age: 78 Gender: male PROCEDURES PERFORMED LP07-(14804)BATTERY REMOVAL+REPLACEMENT PACER-DUAL LEAD INDICATIONS Atrioventricular (AV) block PROCEDURE DETAILS The patient was brought to the Catheterization Lab in the postabsorptive nonsedated state. Informed consent was obtained prior to the procedure. Local anesthetic was given subcutaneously to the left subclavian region with Lidocaine 2%. Incision was made to the left subclavicular area. PPM generator was attached to the lead(s) and inserted into the pocket. Device pocket was irrigated with antibiotic. PPM generator was then interrogated by the sap abap programmer. Subcutaneous closure was completed with 4-0 Vicryl. Skin closure was completed with 3-0 Vicryl. Instrument, sponge, and needle counts were noted to be normal. The patient tolerated the procedure well. Estimated Blood Loss: < 10 mls IMPLANTED / EX-PLANTED DEVICES EXPLANTED DEVICE(S): PPM Generator - Business Support Coordinator: [employer], Model # [id number] , Serial # [id number] IMPLANTED DEVICE(S): PPM Generator - Business Support Coordinator: [employer], Model # ASSURITY MRI , Serial # [id number] DEVICE PARAMETERS DEVICE PARAMETERS: Mode- DDIR Lower rate- 60 Upper rate- 120 CONCLUSIONS / RECOMMENDATIONS Device Conclusions: Successful implantation of a dual chamber pacemaker battery change and replacement Device Recommendations: Follow up with Primary Care Physician PROCEDURE MEDICATIONS Fentanyl 50 mcg IV Versed 1 mg IV Oxygen: 2 L/min via nasal cannula Antibiotic given in appropriate timeframe. Ancef 2 Gm IV @ 08/17/2024 08:00:53 Signed By Konstantin Reyes MD On 08/17/2024 08:46:30 Konstantin Reyes MD
== END 2024-08-17 09:55 | disposition home or self-care (01) ==
PROVIDERS: PCP Family Medicine; Referring Provider Internal Medicine Cardiovascular Disease; Visit Provider Internal Medicine Cardiovascular Disease
DX: Z45.010 Encounter for checking and testing of cardiac pacemaker pulse generator [battery] (principal); I11.0 Hypertensive heart disease with heart failure; I50.32 Chronic diastolic (congestive) heart failure; I48.92 Unspecified atrial flutter; I48.11 Longstanding persistent atrial fibrillation; E78.00 Pure hypercholesterolemia, unspecified; Z95.1 Presence of aortocoronary bypass graft; Z95.5 Presence of coronary angioplasty implant and graft; Z79.01 Long term (current) use of anticoagulants; Z79.02 Long term (current) use of antithrombotics/antiplatelets; Z79.899 Other long term (current) drug therapy; Z86.79 Personal history of other diseases of the circulatory system; Z86.16 Personal history of COVID-19; Z87.891 Personal history of nicotine dependence
CPT/HCPCS: 33228; 36416; 85610; 99152; 99153

== ENCOUNTER → 2024-08-21 | Outpatient (CLI) | payer MEDICARE, SELFPAY ==
[2021-09-09 09:32] VITALS: BMI 27.1
[2024-08-21 12:18] LABS: Hematocrit 38.3 % (40-54); Hemoglobin 12.2 g/dL (13.0-16.5); Mean Corp Hgb Conc 31.9 g/dL (32-36); Mean Corpuscular Hgb 32.1 pg (27.0-32.0); Mean Corpuscular Volume 100.8 fL (80-94); Mean Platelet Vol. 11.1 fl (6.2-12.0); Platelet Count 202 K/mm3 (150-450); RBC Distribution Width SD 51.9 fl (35.1-43.9)
[2024-08-21 12:34] LABS: PTHIN 57 pg/mL (11-61)
[2024-08-21 12:58] LABS: Anion Gap 11 (5-15); BUN 38 mg/dL (4-19); BUN/Creat Ratio 26.4 RATIO (10-20); Calcium,Total 9.5 mg/dL (7.6-11.0); Carbon Dioxide 25.5 mmol/L (21.0-32.0); Chloride 101 mmol/L (98-108); Creatinine, Serum 1.45 mg/dL (0.70-1.20); EST Glomerular Filtration Rate 49 (>60); Glucose 99 mg/dL (70-99); Potassium 5.2 mmol/L (3.3-5.1); Sodium Level 138 mmol/L (133-145); Uric Acid 7.9 mg/dL (3.5-7.2); Vitamin D,25 Hydroxy 30.8 ng/mL (30-100)
[2024-08-21 16:37] LABS: PSA,Total - Annual Screen 0.67 ng/mL (0.02-4.00)
== END | disposition home or self-care (01) ==
PROVIDERS: PCP Family Medicine; Referring Provider Family Medicine; Visit Provider Family Medicine
DX: N18.30 Chronic kidney disease, stage 3 unspecified (principal); M10.9 Gout, unspecified; E03.9 Hypothyroidism, unspecified; Z12.5 Encounter for screening for malignant neoplasm of prostate
CPT/HCPCS: 36415; 80048; 82306; 83970; 84153; 84439; 84443; 84550; 85027; G0103

== ENCOUNTER → 2024-12-07 | Outpatient (CLI) | payer MEDICARE, SELFPAY ==
[2021-09-09 09:32] VITALS: BMI 27.1
[2024-12-07 10:51] LABS: Prothrombin Time (Protime)PT. 22.6 SECONDS (11.7-14.9)
[2024-12-07 12:00] LABS: AST(SGOT) 27 U/L (<=37); Alanine Aminotransfer ALT/SGPT 13 U/L (<=46); Albumin, Serum 4.1 g/dL (3.4-4.8); Alkaline Phosphatase 88 U/L (40-129); Anion Gap 11 (5-15); BUN 42 mg/dL (4-19); BUN/Creat Ratio 26.1 RATIO (10-20); Calcium,Total 9.5 mg/dL (7.6-11.0); Carbon Dioxide 25.7 mmol/L (21.0-32.0); Chloride 104 mmol/L (98-108); Globulin 3.5 g/dL (2.2-4.2); Glucose 92 mg/dL (70-99); Potassium 4.6 mmol/L (3.3-5.1)
[2024-12-07 13:43] LABS: Cholesterol 128 mg/dL (<=200); Low Density Lipoprotein Calc. 60 mg/dL; Triglycerides 65 mg/dL; Very Low Density Lipoprotein 13 mg/dL (5-40); cholesterol:hdl ratio screen 2.31
== END | disposition home or self-care (01) ==
LOC: LAB 09:15
PROVIDERS: PCP Family Medicine; Referring Provider Physician Assistant Medical; Visit Provider Physician Assistant Medical
DX: Z79.01 Long term (current) use of anticoagulants (principal); I48.92 Unspecified atrial flutter; E78.00 Pure hypercholesterolemia, unspecified
CPT/HCPCS: 36415; 80053; 80061; 85610